=== PATIENT | male | born 1935 | race Caucasian/White ===

== ENCOUNTER 2018-07-26 07:44 | Inpatient (IN) | payer MEDICARE, BC ==
[2018-07-22 12:10] LABS: BASOPHILS % (AUTO) 0.4 % (0-1); EOSINOPHILS # (AUTO) 0.3 X10'3 (0-0.9); EOSINOPHILS % (AUTO) 5.1 % (0-6); LYMPHOCYTES # (AUTO) 1.7 X10'3 (1.1-4.8); LYMPHOCYTES % (AUTO) 32.6 % (21-51); MEAN CORPUSCULAR HEMOGLOBIN 30.4 PG (27.0-31.0); MEAN CORPUSCULAR HGB CONC 33.1 % (33.0-36.5); MEAN CORPUSCULAR VOLUME 91.8 FL (78-98); MEAN PLATELET VOLUME 9.4 FL (7.4-10.4); MONOCYTES # (AUTO) 0.7 X10'3 (0-0.9); MONOCYTES % (AUTO) 13.8 % (2-12); NEUTROPHILS # (AUTO) 2.5 X10'3 (1.8-7.7); NEUTROPHILS % (AUTO) 48.1 % (42-75); PRE OP HEMATOCRIT 41.5 % (42.0-52.0); PRE OP HEMOGLOBIN 13.8 g/dL (14.0-17.9); PRE OP PLATELET COUNT 203 X10'3 (140-440); RED BLOOD COUNT 4.52 X10'6 (4.70-6.10); RED CELL DISTRIBUTION WIDTH 16.8 % (11.5-14.5)
[2018-07-22 12:20] LABS: HEMOGLOBIN A1C 7.7 % (4.5-6.2)
[2018-07-22 12:21] LABS: PRE OP PROTIME 10.5 SECONDS (9.0-12.0)
[2018-07-22 12:33] LABS: ALBUMIN 3.6 G/DL (3.4-5.0); ALBUMIN/GLOBULIN RATIO 0.9 (1.1-1.5); ALKALINE PHOSPHATASE 78 IU/L (46-116); BLOOD UREA NITROGEN 22 MG/DL (7-18); BUN/CREATININE RATIO 17.5 (5.4-32.0); CALCIUM 9.5 MG/DL (8.5-10.1); CHLORIDE 106 MMOL/L (99-107); CREATININE 1.26 MG/DL (0.60-1.10); PRE OP ALT 23 U/L (30-65); PRE OP ANION GAP 9 (8-16); PRE OP AST 17 U/L (10-37); PRE OP BILIRUB, TOTAL 0.4 MG/DL (0.0-1.0); PRE OP POTASSIUM 4.3 MMOL/L (3.4-5.1); PRE OP SODIUM 143 MMOL/L (135-145); TOTAL CARBON DIOXIDE 28.2 MMOL/L (24-32); TOTAL PROTEIN 7.4 G/DL (6.4-8.2); eGFR 54 ML/MIN
[2018-07-22 12:43] LABS: PRE OP GLUCOSE 101 MG/DL (70-104)
[~2018-07-26] VITALS: Ht 170.2 cm; Wt 100.0 kg
[2018-07-26] VITALS (17 sets, daily range): BP systolic 106–139; BP diastolic 60–95
[~2018-07-26 07:44] MED LIST: AMYL1CAP56 PO; ATOR40TA PO; CHOL100044 PO; CYAN-19 PO; DULO-31 PO; FERR325T28 PO; FISH12002 PO; FLO0.4C PO; GLIM1TAB46 PO; LEVO125T8 PO; MULT-269 PO; NITR0.4T51 SL; PIOG30TA10 PO; PYRI50TA10 PO; QUIN10TA PO; TIMO5DRO4; TRANEXAMIC ACID 0 MG in NORMAL SALINE 100 ML-BEFORE SURGERY IV ONE; VANCOMYCIN INJ 1000 MG in NORMAL SALINE 250ml IV.SOLN IV ONE; cefazolin/dext.iso 2gm/100 ML IV ONE; famotidine 20mg tablet PO ONE; ringers solution, lacted 1,000 ML IV SCH
[2018-07-26] MEDS ORDERED: ROPIVAcaine 0.5% (5mg/ml) 30ml vial ONE ×2 (08:15→12:07)
[2018-07-26] MEDS ORDERED: tranexamic acid inj. 1,000 MG in normal saline 100ml IV soln 100 ML IV ONE ×2 (09:00→12:10)
[2018-07-26] MEDS ORDERED: vancomycin 1,000mg inj ONE (12:07)
[2018-07-26] MEDS ORDERED: sevoflurane 250ml liquid IH ONE (12:30)
[2018-07-26] MEDS ORDERED: ePHEDrine 50MG/ML INJ. ONE (12:30)
[2018-07-26] MEDS ORDERED: dexamethasone sod phosphate 10mg/ml inj ONE (12:30)
[2018-07-26] MEDS ORDERED: phenylephrine 10mg/ml inj. ONE ×2 (12:30→12:53)
[2018-07-26] MEDS ORDERED: midazolam 2 mg/2 ml injection ONE (12:37)
[2018-07-26] MEDS ORDERED: fentaNYL/PF 50MCG/1 ML 2ML syringe ONE ×2 (12:37→13:44)
[2018-07-26] MEDS ORDERED: propofol inj 20 ML IV ONE (13:10)
[2018-07-26] MEDS ORDERED: LIDOcaine 2% (20mg/ml) 5ml vial ONE (13:10)
[2018-07-26] MEDS ORDERED: ondansetron/PF 4mg/2ml inj ONE (13:10)
[2018-07-26] MEDS ORDERED: bisacodyl 10mg suppository rectal RC PRN (14:40)
[2018-07-26] MEDS ORDERED: nitroGLYCERIN 0.4mg SUBLingual tab SL PRN (14:40)
[2018-07-26] MEDS ORDERED: ondansetron/PF 4mg/2ml inj IV PRN ×2 (14:40→14:55)
[2018-07-26] MEDS ORDERED: diphenhydrAMINE 25mg capsule PO PRN ×2 (14:40)
[2018-07-26] MEDS ORDERED: magnesium hydroxide 30ml (MOM) UD suspension PO PRN (14:40)
[2018-07-26] MEDS ORDERED: HYDROmorphone 1 mg/ml syringe IV PRN ×2 (14:40)
[2018-07-26] MEDS ORDERED: oxyCODONE IR 5mg (immed. release) tablet PO PRN (14:40)
[2018-07-26] MEDS ORDERED: acetaminophen 325mg tablet PO PRN (14:40)
[2018-07-26] MEDS ORDERED: ringers solution, lacted 1,000 ML IV SCH (14:51)
[2018-07-26] MEDS ORDERED: hydrALAZINE 20mg/ml inj. IV PRN (14:55)
[2018-07-26] MEDS ORDERED: morphine 4 MG/ML inj SYRINge IV PRN ×2 (14:55)
[2018-07-26] MEDS ORDERED: fentaNYL/PF 50MCG/1 ML 2ML syringe IV PRN ×2 (14:55)
[2018-07-26] MEDS ORDERED: labetalol 20mg/4ml (5mg/ml) syringe IV PRN (14:55)
[2018-07-26] MEDS: ceFAZolin 1GM/D5W- ADD-VANTAGE 50 ML IV SCH ×2 (16:11→23:50)
[2018-07-26] MEDS: potassium cl 20mEq in 1/2 NS 1,000 ML IV SCH (16:12)
[2018-07-26] MEDS ORDERED: glimepiride 1 MG tablet PO SCH (20:00)
[2018-07-26] MEDS ORDERED: vancomycin/NS 1 GM ADD-VANTAGE 250 ML IV SCH (20:00)
[2018-07-26] MEDS: ferrous sulfate 325mg tablet PO SCH (20:27)
[2018-07-26] MEDS: LIPASE/PROTEASE/AMYLASE 4,200 unit CAPSULE.DR PO SCH ×2 (20:27→21:30)
[2018-07-26] MEDS: ketorolac tromethamine 15mg/ml inj. IV SCH (20:27)
[2018-07-26] MEDS: gabapentin 300mg capsule PO SCH (20:28)
[2018-07-26] MEDS: acetaminophen 325mg tablet PO SCH (20:28)
[2018-07-26] MEDS ORDERED: sennosides 8.6mg tablet PO SCH (21:00)
[2018-07-26] MEDS ORDERED: MESSAGE TO PHARMACY PO ONE (21:25)
[2018-07-26] MEDS ORDERED: dextrose ORAL solution 15 GM/59 ML bottle PO PRN ×2 (21:25)
[2018-07-26] MEDS ORDERED: glucagon, human recombinant 1mg kit SUBCUT PRN (21:25)
[2018-07-26] MEDS ORDERED: dextrose 50%-water 50ml dispensing syringe IV PRN ×2 (21:25)
[2018-07-26] MEDS: insulin Lispro (HumaLOG) vial - multi-dose SQ SCH (21:38)
[2018-07-27] MEDS: acetaminophen 325mg tablet PO SCH ×3 (01:46→14:25)
[2018-07-27] MEDS: potassium cl 20mEq in 1/2 NS 1,000 ML IV SCH ×3 (01:46→11:24)
[2018-07-27] MEDS: ketorolac tromethamine 15mg/ml inj. IV SCH ×3 (01:46→14:25)
[2018-07-27 02:00] VITALS: BP 136/78
[2018-07-27 06:00] VITALS: BP 120/71
[2018-07-27 07:49] LABS: BASOPHILS % (AUTO) 0 % (0-1); EOSINOPHILS % (AUTO) 0 % (0-6); HEMATOCRIT 35.8 % (42.0-52.0); LYMPHOCYTES # (AUTO) 1.2 X10'3 (1.1-4.8); LYMPHOCYTES % (AUTO) 9.3 % (21-51); MEAN CORPUSCULAR HEMOGLOBIN 30.8 PG (27.0-31.0); MEAN CORPUSCULAR HGB CONC 33.5 % (33.0-36.5); MEAN CORPUSCULAR VOLUME 91.8 FL (78-98); MEAN PLATELET VOLUME 9.9 FL (7.4-10.4); MONOCYTES % (AUTO) 7.2 % (2-12); NEUTROPHILS # (AUTO) 11.1 X10'3 (1.8-7.7); NEUTROPHILS % (AUTO) 83.5 % (42-75); PLATELET COUNT 190 X10'3 (140-440); RED CELL DISTRIBUTION WIDTH 15.9 % (11.5-14.5); WHITE BLOOD COUNT 13.3 X10'3 (4.5-11.0)
[2018-07-27] MEDS ORDERED: levoTHYROXINE 125mcg tablet PO SCH (08:00)
[2018-07-27] MEDS ORDERED: lisinopril 20mg tablet PO SCH (08:00)
[2018-07-27] MEDS ORDERED: atorvastatin 20mg tablet PO SCH (08:00)
[2018-07-27] MEDS ORDERED: tamsulosin 0.4mg capsule PO SCH (08:00)
[2018-07-27 08:17] LABS: ANION GAP 10 (8-16); CHLORIDE 104 MMOL/L (99-107); POTASSIUM 4.1 MMOL/L (3.5-5.1); SODIUM 139 MMOL/L (135-145); TOTAL CARBON DIOXIDE 24.7 MMOL/L (24-32)
[2018-07-27] MEDS ORDERED: aspirin 325mg tablet PO SCH (08:30)
[2018-07-27] MEDS: insulin Lispro (HumaLOG) vial - multi-dose SQ SCH ×2 (08:37→12:55)
[2018-07-27] MEDS: LIPASE/PROTEASE/AMYLASE 4,200 unit CAPSULE.DR PO SCH ×2 (08:38→12:55)
[2018-07-27] MEDS: ferrous sulfate 325mg tablet PO SCH ×2 (08:39→14:24)
[2018-07-27] MEDS: gabapentin 300mg capsule PO SCH ×2 (08:39→14:25)
[2018-07-27] MEDS: oxyCODONE IR 5mg (immed. release) tablet PO PRN ×2 (08:40→12:55)
[2018-07-27 10:00] VITALS: BP 116/66
[2018-07-27 10:47] LABS: ANISOCYTOSIS 1+; PLATELET ESTIMATE NORMAL; TOTAL CELLS COUNTED 100
[2018-07-27] MEDS ORDERED: celeCOXIB 100mg capsule PO SCH (20:00)
[2018-07-27] MEDS ORDERED: insulin glargine (Lantus) pen - multi-dose SQ SCH (21:00)
[2018-07-28] MEDS ORDERED: acetaminophen 325mg tablet PO PRN (14:40)
== END 2018-07-27 17:20 | disposition home or self-care (01) | DRG 483 ==
LOC: PAS IN 07:44 → EDSTATUS 10:00 → ORTHO 4S 15:50
PROVIDERS: ADMIT Orthopaedic Surgery; ATTEND Orthopaedic Surgery
PROC: 3E0T3BZ Introduction of Anesthetic Agent into Peripheral Nerves and Plexi, Percutaneous Approach (ICD-10-PCS; 2018-07-26)
PROC: 0LS30ZZ Reposition Right Upper Arm Tendon, Open Approach (ICD-10-PCS; 2018-07-26)
PROC: 0RRJ0JZ Replacement of Right Shoulder Joint with Synthetic Substitute, Open Approach (ICD-10-PCS; principal; 2018-07-26 12:35)
DX: M19.011 Primary osteoarthritis, right shoulder (principal); D62 Acute posthemorrhagic anemia; E03.9 Hypothyroidism, unspecified; E11.9 Type 2 diabetes mellitus without complications; E78.5 Hyperlipidemia, unspecified; M75.21 Bicipital tendinitis, right shoulder; I10 Essential (primary) hypertension; I25.10 Atherosclerotic heart disease of native coronary artery without angina pectoris; J45.909 Unspecified asthma, uncomplicated; F32.9 Major depressive disorder, single episode, unspecified; K21.9 Gastro-esophageal reflux disease without esophagitis; F41.9 Anxiety disorder, unspecified; N40.0 Benign prostatic hyperplasia without lower urinary tract symptoms; Z88.6 Allergy status to analgesic agent; Z87.891 Personal history of nicotine dependence; Z79.899 Other long term (current) drug therapy; Z98.49 Cataract extraction status, unspecified eye; Z85.79 Personal history of other malignant neoplasms of lymphoid, hematopoietic and related tissues
CPT/HCPCS: 36415; 71046; 80051; 80053; 82948; 83036; 84443; 85025; 85610; 85730; 87070; 97110; 97116; 97161; A4565; A7000; C1713; C1776; G0378; J0690; J1100; J1815; J1885; J2001; J2250; J2370; J2405; J2704; J2795; J3010; J3370; J7030; J7040; J7120

== ENCOUNTER 2018-09-02 07:07 | Inpatient (IN) | payer MEDICARE, BC ==
[~2018-09-02] VITALS: Ht 172.7 cm; Wt 100.0 kg
[2018-09-02] VITALS (11 sets, daily range): BP systolic 114–132; BP diastolic 54–66
[~2018-09-02 07:07] MED LIST changes: -TRANEXAMIC ACID 0 MG in NORMAL SALINE 100 ML-BEFORE SURGERY IV ONE; -VANCOMYCIN INJ 1000 MG in NORMAL SALINE 250ml IV.SOLN IV ONE; -cefazolin/dext.iso 2gm/100 ML IV ONE; -famotidine 20mg tablet PO ONE; -ringers solution, lacted 1,000 ML IV SCH
[2018-09-02] MEDS ORDERED: ASPI-1265 PO (07:35)
[2018-09-02] MEDS ORDERED: ALPR-623 PO (07:50)
[2018-09-02 08:18] LABS: ALANINE AMINOTRANSFERASE 22 U/L (12-78); ALBUMIN 2.9 G/DL (3.4-5.0); ALBUMIN/GLOBULIN RATIO 0.9 (1.1-1.5); ALKALINE PHOSPHATASE 76 IU/L (46-116); ANION GAP 10 (8-16); ASPARTATE AMINO TRANSFERASE 23 U/L (10-37); BILIRUBIN,TOTAL 0.4 MG/DL (0.1-1.0); BLOOD UREA NITROGEN 16 MG/DL (7-18); BUN/CREATININE RATIO 13.3 (5.4-32.0); CALCIUM 8.5 MG/DL (8.5-10.1); CHLORIDE 106 MMOL/L (99-107); GLUCOSE 221 MG/DL (70-104); SODIUM 139 MMOL/L (135-145); TOTAL CARBON DIOXIDE 22.9 MMOL/L (24-32); TOTAL PROTEIN 6.2 G/DL (6.4-8.2); eGFR 58 ML/MIN
[2018-09-02 08:28] LABS: POTASSIUM 4.5 MMOL/L (3.5-5.1)
[2018-09-02 09:13] LABS: BASOPHILS % (AUTO) 0.3 % (0-1); EOSINOPHILS # (AUTO) 0.2 X10'3 (0-0.9); EOSINOPHILS % (AUTO) 4.5 % (0-6); LYMPHOCYTES # (AUTO) 1.1 X10'3 (1.1-4.8); LYMPHOCYTES % (AUTO) 21.1 % (21-51); MEAN CORPUSCULAR HEMOGLOBIN 31.2 PG (27.0-31.0); MEAN CORPUSCULAR HGB CONC 32.2 % (33.0-36.5); MEAN CORPUSCULAR VOLUME 96.8 FL (78-98); MEAN PLATELET VOLUME 7.7 FL (7.4-10.4); MONOCYTES # (AUTO) 0.7 X10'3 (0-0.9); MONOCYTES % (AUTO) 12.8 % (2-12); NEUTROPHILS # (AUTO) 3.2 X10'3 (1.8-7.7); NEUTROPHILS % (AUTO) 61.3 % (42-75); PLATELET COUNT 248 X10'3 (140-440); RED CELL DISTRIBUTION WIDTH 22.1 % (11.5-14.5); WHITE BLOOD COUNT 5.3 X10'3 (4.5-11.0)
[2018-09-02 09:20] LABS: HEMATOCRIT 20.4 % (42.0-52.0); HEMOGLOBIN 6.6 g/dl (14.0-17.9)
[2018-09-02 09:27] LABS: CHOL/HDL RATIO 2.5 (0.00-4.99); CHOLESTEROL 102 MG/DL (0-200); HDL CHOLESTEROL 41 MG/DL (35-60); LDL CHOLESTEROL 42 MG/DL (50-100); TRIGLYCERIDES 184 MG/DL (20-135)
[2018-09-02 09:34] LABS: ANISOCYTOSIS 3+; LARGE PLATELETS FEW; PLATELET ESTIMATE NORMAL
[2018-09-02 09:35] LABS: POLYCHROMASIA FEW
[2018-09-02 09:37] LABS: HEMOGLOBIN A1C 5.5 % (4.5-6.2)
[2018-09-02] MEDS ORDERED: nitroGLYCERIN 0.4mg SUBLingual tab SL PRN (10:15)
[2018-09-02] MEDS ORDERED: magnesium 1gm/100ml D5W IVPB 100 ML IV PRN (10:20)
[2018-09-02] MEDS ORDERED: MESSAGE TO PHARMACY PO ONE (10:20)
[2018-09-02] MEDS ORDERED: potassium Cl 40MEQ/NS 500ml 500 ML IV PRN ×2 (10:20)
[2018-09-02] MEDS ORDERED: ondansetron/PF 4mg/2ml inj IV PRN (10:20)
[2018-09-02] MEDS ORDERED: dextrose 50%-water 50ml dispensing syringe IV PRN ×2 (10:20)
[2018-09-02] MEDS ORDERED: ipratropium/albuterol 3ml nebule NEB PRN (10:20)
[2018-09-02] MEDS ORDERED: insulin Lispro (HumaLOG) vial - multi-dose SQ SCH (10:20)
[2018-09-02] MEDS ORDERED: pantoprazole 40 MG vial IV ONE (10:20)
[2018-09-02] MEDS ORDERED: bisacodyl 10mg suppository rectal RC PRN (10:20)
[2018-09-02] MEDS ORDERED: potassium Cl 20 mEq SR tablet PO PRN ×2 (10:20)
[2018-09-02] MEDS ORDERED: glucagon, human recombinant 1mg kit SUBCUT PRN (10:20)
[2018-09-02] MEDS ORDERED: dextrose ORAL solution 15 GM/59 ML bottle PO PRN ×2 (10:20)
[2018-09-02] MEDS ORDERED: acetaminophen 650mg rectal suppository RC PRN (10:20)
[2018-09-02] MEDS ORDERED: HYDROmorphone 1 mg/ml syringe IV PRN (10:20)
[2018-09-02] MEDS ORDERED: magnesium 4gm in 100ml NS 100 ML IV PRN (10:20)
[2018-09-02] MEDS: pantoprazole 40MG/NS 100ML BAG 100 ML IV SCH ×3 (11:21→20:31)
--- NOTE | 2018-09-02 11:32 | NUR ---
Patient in room ED 8. I have received report from ILEANA Horta and had the opportunity to ask questions and assume patient care.
[2018-09-02] MEDS ORDERED: pneumococcal 23-VAL P-sac vacc 25 mcg/0.5ml vial IMVAC ONE (12:00)
[2018-09-02] MEDS: LIPASE/PROTEASE/AMYLASE 4,200 unit CAPSULE.DR PO SCH ×3 (12:30→19:37)
[2018-09-02] MEDS ORDERED: lipase/protease/amylase 20,000 unit capsule.DR PO SCH (12:30)
[2018-09-02 12:33] LABS: OCCULT BLOOD STOOL POSITIVE (Neg)
[2018-09-02 14:46] LABS: MEAN CORPUSCULAR HEMOGLOBIN 30.4 PG (27.0-31.0); MEAN CORPUSCULAR HGB CONC 31.3 % (33.0-36.5); MEAN CORPUSCULAR VOLUME 97.1 FL (78-98); MEAN PLATELET VOLUME 7.8 FL (7.4-10.4); PLATELET COUNT 244 X10'3 (140-440); WHITE BLOOD COUNT 5.1 X10'3 (4.5-11.0)
[2018-09-02 14:48] LABS: HEMOGLOBIN 6.7 g/dl (14.0-17.9)
[2018-09-02 14:49] LABS: HEMATOCRIT 21.4 % (42.0-52.0)
[2018-09-02] MEDS: ferrous sulfate 325mg tablet PO SCH ×2 (16:55→20:31)
--- NOTE | 2018-09-02 17:17 | NUR ---
Two RN Skin Assessment has been completed at 1715 with ILEANA Ferrara,all skin assessed,with the following findings. No impaired skin integrity noted at this time. Surgical incision scar to right anterior shoulder D/T shoulder surgery 1 month ago.
--- NOTE | 2018-09-02 18:30 | NUR ---
Problems reprioritized. Patient report given, questions answered & plan of care reviewed with ILEANA Hector.
--- NOTE | 2018-09-02 19:16 | NUR ---
Patient in room NOHEMI 350. I have received report from ILEANA Wright and had the opportunity to ask questions and assume patient care. Addendum: 09/02/18 at 1916 by Tawny Stanley RN Amended: Links added.
[2018-09-02] MEDS: atorvastatin 20mg tablet PO SCH (20:31)
[2018-09-02] MEDS: insulin glargine (Lantus) pen - multi-dose SQ SCH (21:00)
[2018-09-02] MEDS: ALPRAZolam 0.25mg tablet PO PRN (23:31)
[2018-09-02 23:56] LABS: HEMATOCRIT 24.3 % (42.0-52.0); HEMOGLOBIN 7.9 g/dl (14.0-17.9); MEAN CORPUSCULAR HEMOGLOBIN 30.1 PG (27.0-31.0); MEAN CORPUSCULAR HGB CONC 32.3 % (33.0-36.5); MEAN CORPUSCULAR VOLUME 93.2 FL (78-98); MEAN PLATELET VOLUME 8.4 FL (7.4-10.4); PLATELET COUNT 221 X10'3 (140-440); RED BLOOD COUNT 2.61 X10'6 (4.70-6.10); RED CELL DISTRIBUTION WIDTH 21.8 % (11.5-14.5); WHITE BLOOD COUNT 5.6 X10'3 (4.5-11.0)
[2018-09-03] VITALS (11 sets, daily range): BP systolic 117–156; BP diastolic 57–82
[2018-09-03] MEDS: pantoprazole 40MG/NS 100ML BAG 100 ML IV SCH ×3 (02:54→11:00)
[2018-09-03 05:56] LABS: BASOPHILS % (AUTO) 0.3 % (0-1); EOSINOPHILS # (AUTO) 0.2 X10'3 (0-0.9); EOSINOPHILS % (AUTO) 3.8 % (0-6); HEMATOCRIT 25.7 % (42.0-52.0); HEMOGLOBIN 8.3 g/dl (14.0-17.9); LYMPHOCYTES # (AUTO) 1.1 X10'3 (1.1-4.8); MEAN CORPUSCULAR HEMOGLOBIN 30.1 PG (27.0-31.0); MEAN CORPUSCULAR HGB CONC 32.4 % (33.0-36.5); MEAN CORPUSCULAR VOLUME 92.9 FL (78-98); MEAN PLATELET VOLUME 7.9 FL (7.4-10.4); MONOCYTES # (AUTO) 0.6 X10'3 (0-0.9); MONOCYTES % (AUTO) 11.4 % (2-12); NEUTROPHILS # (AUTO) 3.7 X10'3 (1.8-7.7); NEUTROPHILS % (AUTO) 64.5 % (42-75); PLATELET COUNT 225 X10'3 (140-440); RED BLOOD COUNT 2.77 X10'6 (4.70-6.10); RED CELL DISTRIBUTION WIDTH 21.5 % (11.5-14.5); WHITE BLOOD COUNT 5.7 X10'3 (4.5-11.0)
[2018-09-03 06:10] LABS: PLATELET ESTIMATE NORMAL
[2018-09-03 06:11] LABS: ANISOCYTOSIS 3+; POLYCHROMASIA FEW
[2018-09-03 06:14] LABS: ALANINE AMINOTRANSFERASE 19 U/L (12-78); ALBUMIN 2.9 G/DL (3.4-5.0); ALBUMIN/GLOBULIN RATIO 0.9 (1.1-1.5); ALKALINE PHOSPHATASE 77 IU/L (46-116); ANION GAP 7 (8-16); ASPARTATE AMINO TRANSFERASE 17 U/L (10-37); BILIRUBIN,TOTAL 0.9 MG/DL (0.1-1.0); BLOOD UREA NITROGEN 18 MG/DL (7-18); BUN/CREATININE RATIO 13.6 (5.4-32.0); CALCIUM 8.4 MG/DL (8.5-10.1); CHLORIDE 107 MMOL/L (99-107); CHOL/HDL RATIO 2.7 (0.00-4.99); CHOLESTEROL 104 MG/DL (0-200); CREATININE 1.32 MG/DL (0.60-1.10); GLUCOSE 121 MG/DL (70-104); HDL CHOLESTEROL 39 MG/DL (35-60); LDL CHOLESTEROL 46 MG/DL (50-100); SODIUM 140 MMOL/L (135-145); TOTAL CARBON DIOXIDE 25.6 MMOL/L (24-32); TOTAL PROTEIN 6.3 G/DL (6.4-8.2); TRIGLYCERIDES 146 MG/DL (20-135); eGFR 52 ML/MIN
--- NOTE | 2018-09-03 06:15 | NUR ---
Problems reprioritized. Patient report given, questions answered & plan of care reviewed with Dalia TEJEDA.
--- NOTE | 2018-09-03 06:17 | NUR ---
Problems reprioritized. Patient report given, questions answered & plan of care reviewed with ILEANA Richard. Addendum: 09/03/18 at 0618 by Tawny Stanley RN Amended: Links added.
--- NOTE | 2018-09-03 06:25 | NUR ---
call from tele to report hr 115. pt. standing at bedside urinating
--- NOTE | 2018-09-03 06:30 | NUR ---
Patient in room NOHE[facility] 350. I have received report from Tawny TEJEDA and had the opportunity to ask questions and assume patient care.
[2018-09-03] MEDS: K and/or MAG REPLACEMENT MC SCH (07:06)
[2018-09-03] MEDS: LIPASE/PROTEASE/AMYLASE 4,200 unit CAPSULE.DR PO SCH ×4 (07:06→21:07)
[2018-09-03] MEDS: atorvastatin 20mg tablet PO SCH ×2 (07:07→19:35)
[2018-09-03] MEDS: ferrous sulfate 325mg tablet PO SCH ×3 (07:07→21:08)
[2018-09-03] MEDS: tamsulosin 0.4mg capsule PO SCH (07:07)
[2018-09-03] MEDS: multivitamins, therapeutics tablet PO SCH (07:07)
[2018-09-03] MEDS: duloxetine 30mg CAPSULE.DR PO SCH (07:07)
[2018-09-03] MEDS: levoTHYROXINE 125mcg tablet PO SCH (07:07)
[2018-09-03] MEDS: cyanocobalamin 500mcg tablet PO SCH (07:08)
[2018-09-03] MEDS: vitamin D (cholecalciferol) 1,000 unit tablet PO SCH (07:08)
[2018-09-03] MEDS: pyridoxine 50mg tablet PO SCH (07:08)
[2018-09-03] MEDS ORDERED: pneumococcal 23-VAL P-sac vacc 25 mcg/0.5ml vial IMVAC ONE (10:00)
[2018-09-03] MEDS ORDERED: LORazepam 2 mg/ml vial IV ONE (10:35)
[2018-09-03] MEDS ORDERED: fentaNYL/PF 50MCG/1 ML 2ML syringe ONE (11:39)
[2018-09-03] MEDS ORDERED: MIDAZolam 5mg/5ml vial ONE (11:39)
[2018-09-03] MEDS ORDERED: LIDOcaine Viscous 15ml cup ONE (11:39)
--- NOTE | 2018-09-03 11:59 | NUR ---
Patient taken down to GI lab for EGD via w/c.
--- NOTE | 2018-09-03 15:18 | NUR ---
Patient back in room 350A from GI lab.
--- NOTE | 2018-09-03 15:33 | NUR ---
MD informed of EGD results. MD ordered clear liquids and protonix 40mg BID IV.
--- NOTE | 2018-09-03 18:30 | NUR ---
Patient in room [facility] 350. I have received report from ILEANA Richard and had the opportunity to ask questions and assume patient care.
--- NOTE | 2018-09-03 18:30 | NUR ---
Student documentation: I have reviewed and agree with all interventions, assessments performed and documented by Ezra Student Nurse. Student Medication Administration: For this medication-pass time frame, all medication were reviewed, dispensed, administered and documented per hospital policy by Ezra Student Nurse.
[2018-09-03] MEDS: pantoprazole 40 MG vial IV SCH (19:35)
[2018-09-03] MEDS: insulin glargine (Lantus) pen - multi-dose SQ SCH (21:00)
[2018-09-04] VITALS: BP 132/63
[2018-09-04] MEDS: ALPRAZolam 0.25mg tablet PO PRN (00:02)
[2018-09-04 05:29] LABS: BASOPHILS % (AUTO) 0.2 % (0-1); EOSINOPHILS # (AUTO) 0.2 X10'3 (0-0.9); EOSINOPHILS % (AUTO) 4.4 % (0-6); HEMATOCRIT 25.3 % (42.0-52.0); HEMOGLOBIN 8.1 g/dl (14.0-17.9); LYMPHOCYTES # (AUTO) 0.9 X10'3 (1.1-4.8); LYMPHOCYTES % (AUTO) 18.4 % (21-51); MEAN CORPUSCULAR HEMOGLOBIN 29.4 PG (27.0-31.0); MEAN CORPUSCULAR HGB CONC 31.9 % (33.0-36.5); MEAN CORPUSCULAR VOLUME 92.1 FL (78-98); MEAN PLATELET VOLUME 7.6 FL (7.4-10.4); MONOCYTES # (AUTO) 0.6 X10'3 (0-0.9); MONOCYTES % (AUTO) 11.5 % (2-12); NEUTROPHILS # (AUTO) 3.2 X10'3 (1.8-7.7); NEUTROPHILS % (AUTO) 65.5 % (42-75); PLATELET COUNT 230 X10'3 (140-440); RED BLOOD COUNT 2.75 X10'6 (4.70-6.10); RED CELL DISTRIBUTION WIDTH 21.2 % (11.5-14.5)
[2018-09-04 05:50] LABS: ALANINE AMINOTRANSFERASE 21 U/L (12-78); ALKALINE PHOSPHATASE 75 IU/L (46-116); ANION GAP 8 (8-16); ASPARTATE AMINO TRANSFERASE 16 U/L (10-37); BILIRUBIN,TOTAL 0.6 MG/DL (0.1-1.0); BLOOD UREA NITROGEN 16 MG/DL (7-18); BUN/CREATININE RATIO 15.4 (5.4-32.0); CALCIUM 8.5 MG/DL (8.5-10.1); CHLORIDE 107 MMOL/L (99-107); CREATININE 1.04 MG/DL (0.60-1.10); GLUCOSE 136 MG/DL (70-104); POTASSIUM 3.9 MMOL/L (3.5-5.1); SODIUM 141 MMOL/L (135-145); TOTAL CARBON DIOXIDE 26.2 MMOL/L (24-32); TOTAL PROTEIN 6.1 G/DL (6.4-8.2); eGFR 68 ML/MIN
--- NOTE | 2018-09-04 06:18 | NUR ---
Problems reprioritized. Patient report given, questions answered & plan of care reviewed with ILEANA Richard.
--- NOTE | 2018-09-04 06:21 | NUR ---
Patient in room NOHEMI 350. I have received report from ILEANA CORRIGAN and had the opportunity to ask questions and assume patient care.
--- NOTE | 2018-09-04 06:44 | NUR ---
Patient in room [facility] 350. I have received report from Dalia TEJEDA and had the opportunity to ask questions and assume patient care.
[2018-09-04 08:00] VITALS: BP 136/68
[2018-09-04] MEDS: K and/or MAG REPLACEMENT MC SCH (08:00)
[2018-09-04] MEDS: pantoprazole 40 MG vial IV SCH (08:12)
[2018-09-04] MEDS: levoTHYROXINE 125mcg tablet PO SCH (08:33)
[2018-09-04] MEDS: duloxetine 30mg CAPSULE.DR PO SCH (08:33)
[2018-09-04] MEDS: pyridoxine 50mg tablet PO SCH (08:33)
[2018-09-04] MEDS: cyanocobalamin 500mcg tablet PO SCH (08:34)
[2018-09-04] MEDS: tamsulosin 0.4mg capsule PO SCH (08:34)
[2018-09-04] MEDS: multivitamins, therapeutics tablet PO SCH (08:34)
[2018-09-04] MEDS: atorvastatin 20mg tablet PO SCH (08:34)
[2018-09-04] MEDS: vitamin D (cholecalciferol) 1,000 unit tablet PO SCH (08:34)
[2018-09-04] MEDS: ferrous sulfate 325mg tablet PO SCH ×2 (08:34→12:28)
[2018-09-04] MEDS: LIPASE/PROTEASE/AMYLASE 4,200 unit CAPSULE.DR PO SCH ×2 (08:34→12:28)
[2018-09-04 11:39] VITALS: BP 118/68
--- NOTE | 2018-09-04 12:24 | NUR ---
Reported off to student nurse Keily and primary nurse Hilary. patient resting in bed. BLL and call light within reach.
--- NOTE | 2018-09-04 12:57 | NUR ---
Received report from ILEANA Richard, was able to ask questions, assumed care of patient. HM
[2018-09-04] MEDS ORDERED: ESOM40CA54 PO (14:33)
--- NOTE | 2018-09-04 15:40 | NUR ---
Reported off to ILEANA Richard, patient discharged, took patient to lobby by w/cElias CAMPOS
--- NOTE | 2018-09-04 15:45 | NUR ---
Patient discharge paperwork gone over with pt and signed. Patient understands to followup with PCP and Dr. Rodarte. Rx delivered to bedside. IV taken out, tele taken off. All belongings gathered. to take pt home. W/c to front lobby.
== END 2018-09-04 15:50 | disposition home or self-care (01) | DRG 391 ==
LOC: ER 07:07 → ED HOLD 10:27 → SUR 3N 12:02
PROVIDERS: ADMIT Family Medicine; ATTEND Family Medicine
PROC: 30233N1 Transfusion of Nonautologous Red Blood Cells into Peripheral Vein, Percutaneous Approach (ICD-10-PCS; principal; 2018-09-02)
PROC: 0DB68ZX Excision of Stomach, Via Natural or Artificial Opening Endoscopic, Diagnostic (ICD-10-PCS; 2018-09-03)
DX: K20.9 Esophagitis, unspecified (principal); K26.0 Acute duodenal ulcer with hemorrhage; K26.4 Chronic or unspecified duodenal ulcer with hemorrhage; K29.71 Gastritis, unspecified, with bleeding; C90.00 Multiple myeloma not having achieved remission; E44.1 Mild protein-calorie malnutrition; I24.9 Acute ischemic heart disease, unspecified; D50.0 Iron deficiency anemia secondary to blood loss (chronic); E11.65 Type 2 diabetes mellitus with hyperglycemia; E78.00 Pure hypercholesterolemia, unspecified; E78.5 Hyperlipidemia, unspecified; F41.9 Anxiety disorder, unspecified; I10 Essential (primary) hypertension; I25.10 Atherosclerotic heart disease of native coronary artery without angina pectoris; K22.8 Other specified diseases of esophagus; J45.909 Unspecified asthma, uncomplicated; N40.0 Benign prostatic hyperplasia without lower urinary tract symptoms; Z96.653 Presence of artificial knee joint, bilateral; Z96.611 Presence of right artificial shoulder joint; Z96.612 Presence of left artificial shoulder joint; Z95.5 Presence of coronary angioplasty implant and graft; I25.2 Old myocardial infarction; Z88.6 Allergy status to analgesic agent; Z88.8 Allergy status to other drugs, medicaments and biological substances; Z79.84 Long term (current) use of oral hypoglycemic drugs; Z79.890 Hormone replacement therapy; Z79.82 Long term (current) use of aspirin; Z87.891 Personal history of nicotine dependence; Z80.0 Family history of malignant neoplasm of digestive organs; Z68.33 Body mass index [BMI] 33.0-33.9, adult
CPT/HCPCS: 36415; 43239; 71045; 80053; 80061; 82272; 82948; 83036; 83735; 83880; 84443; 84484; 85025; 85027; 86885; 86900; 86901; 86920; 87070; 88305; 88342; 90732; 93005; 94640; 94760; 99152; 99285; A4620; C9113; G0378; J1815; J2060; J2250; J3010; J7030; P9016

== ENCOUNTER 2018-11-28 21:22 | Inpatient (IN) | payer MEDICARE, BC ==
[~2018-11-28] VITALS: Ht 172.7 cm; Wt 100.0 kg
[~2018-11-28 21:22] MED LIST changes: +ALPR-623 PO; +ESOM40CA54 PO; -TIMO5DRO4; +TIMO5DRO4 EACHEYE; +temazepam 15mg capsule PO PRN
--- NOTE | 2018-11-28 22:21 | NUR ---
DR KITCHEN AT BEDSIDE TO TAKE FLUID OFF OF LEFT KNEE, SAMPLE SENT TO LAB
[2018-11-28] MEDS ORDERED: HYDROcodone/acetaminophen 10/325mg tab PO ONE (22:25)
--- NOTE | 2018-11-28 22:42 | NUR ---
PT HAS NO RIDE HOME, DOESN'T DRIVE AT NIGHT SHE ONLY HAS ONE EYE, NO FRIENDS AVAILABLE TO TAKE PT HOME IF HE IS DISCHARGED, PT CAME BY AMBULANCE "BECAUSE I COULDN'T WALK"
[2018-11-28 23:02] LABS: APPEARANCE,SYNOVIAL FLUID CLOUDY; COLOR,SYNOVIAL FLUID YELLOW
[2018-11-28 23:05] LABS: GLUCOSE,SYNOVIAL FLUID 89 MG/DL; TOTAL PROTEIN,SYNOVIAL FLUID 3.7 GM/DL
[2018-11-28 23:26] LABS: SYN WBC 74000 /CU MM (0-200)
[2018-11-28 23:27] LABS: SYN RBC 14500 /CU MM (0)
[2018-11-28] MEDS ORDERED: CefTRIAXone 2gm/D5W 50ml 50 ML IV ONE (23:40)
[2018-11-28] MEDS ORDERED: vancomycin/NS 1 GM ADD-VANTAGE 250 ML IV ONE (23:40)
--- NOTE | 2018-11-28 23:45 | NUR ---
DR DOCKERY AT BEDSIDE TO EVAL PT
[2018-11-28 23:46] LABS: SYNOVIAL FLUID CRYSTALS QT NO CRYSTALS SEEN
[2018-11-28] MEDS ORDERED: normal saline 1000ML IV soln IVB ONE (23:50)
[2018-11-28] MEDS: normal saline 1000ml 1,000 ML IV SCH (23:58)
[2018-11-29] MEDS ORDERED: dextrose 50%-water 50ml dispensing syringe IV PRN ×2
[2018-11-29] MEDS ORDERED: acetaminophen 325mg tablet PO PRN ×2
[2018-11-29] MEDS ORDERED: magnesium hydroxide 30ml (MOM) UD suspension PO PRN
[2018-11-29] MEDS ORDERED: MESSAGE TO PHARMACY PO ONE
[2018-11-29] MEDS ORDERED: insulin Lispro (HumaLOG) vial - multi-dose SQ SCH
[2018-11-29] MEDS ORDERED: ondansetron/PF 4mg/2ml inj IV PRN
[2018-11-29] MEDS ORDERED: morphine 4 MG/ML inj SYRINge IV PRN
[2018-11-29] MEDS ORDERED: dextrose ORAL solution 15 GM/59 ML bottle PO PRN ×2
[2018-11-29] MEDS ORDERED: glucagon, human recombinant 1mg kit SUBCUT PRN
[2018-11-29] MEDS ORDERED: mag hydrox/Alum hydrox/simeth 30ml oral suspension PO PRN
[2018-11-29] MEDS ORDERED: HYDROcodone/acetaminophen 5mg/325mg tablet PO PRN
--- NOTE | 2018-11-29 00:04 | NUR ---
PT MOVED TO ROOM 8, PLAN TO ADMIT TO HOSPITAL, 2ND SET OF BLOOD CX DRAWN WITH IV START, PT SAID HE HAS PORT ON RT SIDE OF CHEST, RECEIVED IRON INFUSION, H/O TERMINAL BONE CANCER
[2018-11-29 00:12] LABS: BASOPHILS % (AUTO) 0.1 % (0-1); EOSINOPHILS # (AUTO) 0.2 X10'3 (0-0.9); EOSINOPHILS % (AUTO) 1.9 % (0-6); HEMOGLOBIN 11.2 g/dl (14.0-17.9); LYMPHOCYTES % (AUTO) 8.9 % (21-51); MEAN CORPUSCULAR HEMOGLOBIN 29.8 PG (27.0-31.0); MEAN CORPUSCULAR HGB CONC 32.8 g/dL (33.0-36.5); MEAN CORPUSCULAR VOLUME 90.8 FL (78-98); MEAN PLATELET VOLUME 8.4 FL (7.4-10.4); MONOCYTES # (AUTO) 1.3 X10'3 (0-0.9); MONOCYTES % (AUTO) 11.7 % (2-12); NEUTROPHILS # (AUTO) 8.4 X10'3 (1.8-7.7); NEUTROPHILS % (AUTO) 77.4 % (42-75); PLATELET COUNT 263 X10'3 (140-440); RED BLOOD COUNT 3.75 X10'6 (4.70-6.10); WHITE BLOOD COUNT 10.9 X10'3 (4.5-11.0)
[2018-11-29 00:24] LABS: INR 1.1 INR; PARTIAL THROMBOPLASTIN TIME 39 SECONDS (22-32)
[2018-11-29 00:25] LABS: ALANINE AMINOTRANSFERASE 21 U/L (12-78); ALBUMIN 3.4 G/DL (3.4-5.0); ALBUMIN/GLOBULIN RATIO 0.9 (1.1-1.5); ALKALINE PHOSPHATASE 84 IU/L (46-116); ANION GAP 9 (8-16); ASPARTATE AMINO TRANSFERASE 15 U/L (10-37); BILIRUBIN,TOTAL 0.5 MG/DL (0.1-1.0); BLOOD UREA NITROGEN 15 MG/DL (7-18); BUN/CREATININE RATIO 12.4 (5.4-32.0); CHLORIDE 98 MMOL/L (99-107); CREATININE 1.21 MG/DL (0.60-1.10); GLUCOSE 178 MG/DL (70-104); MAGNESIUM 1.8 MG/DL (1.5-2.4); POTASSIUM 4.2 MMOL/L (3.5-5.1); SODIUM 133 MMOL/L (135-145); TOTAL CARBON DIOXIDE 26.1 MMOL/L (24-32); TOTAL PROTEIN 7.2 G/DL (6.4-8.2); eGFR 57 ML/MIN
[2018-11-29] MEDS ORDERED: LEVO137T2 PO (00:46)
[2018-11-29 00:47] LABS: HEMOGLOBIN A1C 6.3 % (4.5-6.2)
[2018-11-29] MEDS ORDERED: HYDR-3972 PO (00:47)
[2018-11-29 01:44] LABS: CLARITY,URINE CLOUDY (Clear); COLOR,URINE YELLOW (Yellow); GLUCOSE, URINE NEGATIVE (Neg); KETONES,URINE NEGATIVE (Neg); LEUKOCYTE ESTERASE ,URINE LARGE (Neg); NITRITES, URINE NEGATIVE (Neg); OCCULT BLOOD,URINE LARGE (Neg); PROTEIN,URINE 30 mg/dl (Neg); UROBILINOGEN,URINE 0.2 E.U/dL (0.2-1.0)
[2018-11-29 01:50] LABS: UA COLLECTION TYPE URINAL
[2018-11-29 01:51] LABS: SQUAMOUS EPITHELIAL CELL,UR FEW /LPF (FEW); WBC,URINE TNTC /HPF (0-4)
[2018-11-29 01:52] LABS: BACTERIA,URINE 1+ /HPF (Neg)
[2018-11-29] MEDS ORDERED: NORMAL SALINE IV SCH (06:00)
[2018-11-29] MEDS ORDERED: VANCOMYCIN IV SCH (06:00)
[2018-11-29] MEDS: vancomycin inj 1,250 MG in normal saline 250ml IV soln 250 ML IV SCH ×2 (06:41→17:02)
--- NOTE | 2018-11-29 07:34 | NUR ---
REPORT ATTEMPTED, ILEANA JUARES TO CALL BACK.
[2018-11-29 07:55] LABS: BASOPHILS % (AUTO) 0.3 % (0-1); EOSINOPHILS # (AUTO) 0.1 X10'3 (0-0.9); EOSINOPHILS % (AUTO) 1.6 % (0-6); HEMATOCRIT 32.2 % (42.0-52.0); HEMOGLOBIN 10.6 g/dl (14.0-17.9); LYMPHOCYTES % (AUTO) 12.7 % (21-51); MEAN CORPUSCULAR HGB CONC 32.9 g/dL (33.0-36.5); MEAN CORPUSCULAR VOLUME 91.2 FL (78-98); MEAN PLATELET VOLUME 8.2 FL (7.4-10.4); MONOCYTES # (AUTO) 1.2 X10'3 (0-0.9); MONOCYTES % (AUTO) 14.1 % (2-12); NEUTROPHILS # (AUTO) 5.8 X10'3 (1.8-7.7); NEUTROPHILS % (AUTO) 71.3 % (42-75); PLATELET COUNT 238 X10'3 (140-440); RED BLOOD COUNT 3.53 X10'6 (4.70-6.10); RED CELL DISTRIBUTION WIDTH 18.4 % (11.5-14.5); WHITE BLOOD COUNT 8.2 X10'3 (4.5-11.0)
[2018-11-29] MEDS ORDERED: vancomycin/NS 1 GM ADD-VANTAGE 250 ML IV SCH (08:00)
[2018-11-29] MEDS: enoxaparin 40mg/0.4ml syringe SUBCUT SCH (08:00)
[2018-11-29 08:13] LABS: ANION GAP 8 (8-16); BLOOD UREA NITROGEN 12 MG/DL (7-18); BUN/CREATININE RATIO 11.3 (5.4-32.0); CALCIUM 8.6 MG/DL (8.5-10.1); CHLORIDE 103 MMOL/L (99-107); CREATININE 1.06 MG/DL (0.60-1.10); POTASSIUM 3.9 MMOL/L (3.5-5.1); SODIUM 138 MMOL/L (135-145); TOTAL CARBON DIOXIDE 27.1 MMOL/L (24-32); eGFR 66 ML/MIN
[2018-11-29 08:16] LABS: GLUCOSE 109 MG/DL (70-104)
[2018-11-29 10:00] VITALS: BP 118/59
--- NOTE | 2018-11-29 10:19 | NUR ---
Temp 100.1, Erwin FRANZ and Dr Waterman made aware.
[2018-11-29] MEDS: normal saline 1000ml 1,000 ML IV SCH ×2 (11:34→19:58)
[2018-11-29] MEDS ORDERED: nitroGLYCERIN 0.4mg SUBLingual tab SL PRN (14:55)
[2018-11-29] MEDS ORDERED: ALPRAZolam 0.25mg tablet PO PRN (14:55)
[2018-11-29 15:41] LABS: LYMPHOCYTES,BODY FLUID 4 %; MONOCYTES,BODY FLUID 8 %; NEUTROPHILS,BODY FLUID 88 %
[2018-11-29 15:42] LABS: BFAPPEAR CLOUDY
[2018-11-29 15:43] LABS: BF RBC COUNT 1275 /CU MM; BF WBC COUNT 6450 /CU MM (0-1000); BFCOLOR AMBER; BFVOLUME 2 ML
[2018-11-29 16:33] LABS: TOTAL CELLS COUNTED 100
[2018-11-29 16:34] LABS: ANISOCYTOSIS 2+; PLATELET ESTIMATE NORMAL; POIKILOCYTOSIS 1+; POLYCHROMASIA 1+
[2018-11-29] MEDS: LIPASE/PROTEASE/AMYLASE 4,200 unit CAPSULE.DR PO SCH ×2 (16:42→20:50)
[2018-11-29] MEDS ORDERED: lisinopril 20mg tablet PO ONE (16:50)
[2018-11-29] MEDS ORDERED: tamsulosin 0.4mg capsule PO ONE (16:50)
[2018-11-29 18:00] VITALS: BP 113/59
--- NOTE | 2018-11-29 18:00 | NUR ---
Patient in room ORTHO 4016. I have received report from ILEANA Baer and had the opportunity to ask questions and assume patient care.
--- NOTE | 2018-11-29 18:15 | NUR ---
Problems reprioritized. Patient report given, questions answered & plan of care reviewed with Rosana.
[2018-11-29] MEDS: HYDROcodone/acetaminophen 10/325mg tab PO PRN (18:53)
--- NOTE | 2018-11-29 19:06 | NUR ---
Problems reprioritized. Patient report given, questions answered & plan of care reviewed with ILEANA Nathan.
--- NOTE | 2018-11-29 19:09 | NUR ---
Patient in room ORTHO 4016. I have received report from RICKI TEJEDA and had the opportunity to ask questions and assume patient care.
[2018-11-29] MEDS: ferrous sulfate 325mg tablet PO SCH (20:49)
[2018-11-29] MEDS: lactobacillus rhamnosus 10,000 MMU CELLS/CAPSULE PO SCH (20:49)
[2018-11-29] MEDS: insulin glargine (Lantus) pen - multi-dose SQ SCH (20:54)
[2018-11-29 23:00] VITALS: BP 114/64
[2018-11-29] MEDS ORDERED: CefTRIAXone/D5W-Rocephin 1gm 50 ML IV SCH (23:00)
[2018-11-30] MEDS: normal saline 1000ml 1,000 ML IV SCH ×2 (01:19→14:51)
[2018-11-30] MEDS: vancomycin inj 1,250 MG in normal saline 250ml IV soln 250 ML IV SCH ×2 (05:44→18:39)
[2018-11-30 06:00] VITALS: BP 126/57
--- NOTE | 2018-11-30 06:46 | NUR ---
Problems reprioritized. Patient report given, questions answered & plan of care reviewed with HARRISON TEJEDA.
--- NOTE | 2018-11-30 06:46 | NUR ---
Problems reprioritized. Patient report given, questions answered & plan of care reviewed with HARRISON TEJEDA.
[2018-11-30] MEDS: timolol maleate 0.25% ophthalmic drops 10ml EACHEYE SCH (08:00)
[2018-11-30] MEDS ORDERED: timolol 0.5% ophthalmic solution 5ml bottle EACHEYE SCH (08:00)
[2018-11-30] MEDS: morphine 4 MG/ML inj SYRINge IV PRN (09:28)
[2018-11-30] MEDS: enoxaparin 40mg/0.4ml syringe SUBCUT SCH (09:28)
[2018-11-30] MEDS: duloxetine 30mg CAPSULE.DR PO SCH (09:29)
[2018-11-30] MEDS: levoTHYROXINE 25mcg tablet PO SCH (09:29)
[2018-11-30] MEDS: levoTHYROXINE 112mcg tablet PO SCH (09:29)
[2018-11-30] MEDS: tamsulosin 0.4mg capsule PO SCH (09:30)
[2018-11-30] MEDS: cyanocobalamin 500mcg tablet PO SCH (09:30)
[2018-11-30] MEDS: lisinopril 20mg tablet PO SCH (09:31)
[2018-11-30] MEDS: vitamin D (cholecalciferol) 1,000 unit tablet PO SCH (09:31)
[2018-11-30] MEDS: multivitamins, therapeutics tablet PO SCH (09:31)
[2018-11-30] MEDS: atorvastatin 20mg tablet PO SCH (09:32)
[2018-11-30] MEDS: CefTRIAXone 2gm/D5W 50ml 50 ML IV SCH (09:32)
[2018-11-30] MEDS: lactobacillus rhamnosus 10,000 MMU CELLS/CAPSULE PO SCH ×2 (09:33→20:30)
[2018-11-30] MEDS: ferrous sulfate 325mg tablet PO SCH ×3 (09:33→20:30)
[2018-11-30] MEDS: pyridoxine 50mg tablet PO SCH (09:34)
[2018-11-30] MEDS: LIPASE/PROTEASE/AMYLASE 4,200 unit CAPSULE.DR PO SCH ×4 (09:36→21:47)
[2018-11-30 10:00] VITALS: BP 117/56
[2018-11-30 12:02] LABS: INR 1.1 INR; PROTHROMBIN TIME 11.3 SECONDS (9.0-12.0)
[2018-11-30] MEDS ORDERED: VANCOMYCIN LEVEL IV ONE (17:30)
[2018-11-30 18:00] VITALS: BP 114/53
--- NOTE | 2018-11-30 18:30 | NUR ---
Patient in room ORTHO 4016. I have received report from ILEANA Montoya and had the opportunity to ask questions and assume patient care. Patient awake and alert. Dinner tray ordered, as it did not come up with dietary cart.
--- NOTE | 2018-11-30 19:04 | NUR ---
Problems reprioritized. Patient report given, questions answered & plan of care reviewed with Belkis TEJEDA.
[2018-11-30] MEDS ORDERED: warfarin 10mg tablet PO ONE (20:00)
--- NOTE | 2018-11-30 20:00 | NUR ---
Patient just got dinner tray. Will take his BG later than scheduled time.
[2018-11-30] MEDS: insulin glargine (Lantus) pen - multi-dose SQ SCH (21:00)
[2018-11-30] MEDS: HYDROcodone/acetaminophen 10/325mg tab PO PRN (21:52)
[2018-11-30 22:00] VITALS: BP 131/66
--- NOTE | 2018-11-30 23:00 | NUR ---
BG 193. Lantus was held at 2100, as patient had not met protocol at that time. Patient had crackers and yogurt with enzymes at 2300, which may have effected his BG level.
[2018-12-01] VITALS (21 sets, daily range): BP systolic 79–158; BP diastolic 47–74
--- NOTE | 2018-12-01 00:45 | NUR ---
Patient up to shower for pre op prep.
[2018-12-01] MEDS: normal saline 1000ml 1,000 ML IV SCH ×3 (02:44→21:58)
[2018-12-01] MEDS: vancomycin inj 1,250 MG in normal saline 250ml IV soln 250 ML IV SCH ×2 (05:51→20:11)
--- NOTE | 2018-12-01 06:16 | NUR ---
Problems reprioritized. Patient report given, questions answered & plan of care reviewed with ILEANA Dozier.
[2018-12-01] MEDS: levoTHYROXINE 112mcg tablet PO SCH (07:24)
[2018-12-01] MEDS: levoTHYROXINE 25mcg tablet PO SCH (07:24)
[2018-12-01] MEDS: LIPASE/PROTEASE/AMYLASE 4,200 unit CAPSULE.DR PO SCH ×4 (07:30→21:13)
[2018-12-01] MEDS ORDERED: ROPIVAcaine 0.5% (5mg/ml) 30ml vial ONE (07:32)
[2018-12-01] MEDS ORDERED: tetracaine 1% (10mg/ml) pres. free inj. ONE (07:32)
[2018-12-01] MEDS ORDERED: MIDAZolam 1mg/ml 10ml vial ONE (07:34)
[2018-12-01] MEDS ORDERED: ringers solution, lacted 1,000 ML IV SCH (07:39)
[2018-12-01] MEDS ORDERED: hydrALAZINE 20mg/ml inj. IV PRN (07:40)
[2018-12-01] MEDS ORDERED: morphine 4 MG/ML inj SYRINge IV PRN ×2 (07:40)
[2018-12-01] MEDS ORDERED: ondansetron/PF 4mg/2ml inj IV PRN ×3 (07:40→09:55)
[2018-12-01] MEDS ORDERED: labetalol 20mg/4ml (5mg/ml) syringe IV PRN (07:40)
[2018-12-01] MEDS ORDERED: fentaNYL/PF 50MCG/1 ML 2ML syringe IV PRN ×2 (07:40)
[2018-12-01] MEDS ORDERED: morphine /PF 1mg/ml 10ml inj. ONE (07:48)
[2018-12-01] MEDS ORDERED: fentaNYL/PF 50MCG/1 ML 2ML syringe ONE (07:49)
[2018-12-01] MEDS: ferrous sulfate 325mg tablet PO SCH ×3 (08:00→20:11)
[2018-12-01] MEDS: enoxaparin 40mg/0.4ml syringe SUBCUT SCH (08:00)
[2018-12-01] MEDS: timolol maleate 0.25% ophthalmic drops 10ml EACHEYE SCH (08:00)
[2018-12-01] MEDS ORDERED: tranexamic acid inj. 1,500 MG in normal saline 100ml IV soln 100 ML IV ONE (08:35)
[2018-12-01] MEDS ORDERED: diphenhydrAMINE 50 mg/ml inj IV PRN (08:40)
--- NOTE | 2018-12-01 09:50 | NUR ---
Received from OR via bed, accompanied by Anesthesiologist. Report received. Initial physical assessment done and recorded.
[2018-12-01] MEDS ORDERED: HYDROmorphone 1 mg/ml syringe IV PRN (09:55)
[2018-12-01] MEDS ORDERED: diphenhydrAMINE 25mg capsule PO PRN ×2 (09:55)
[2018-12-01] MEDS ORDERED: acetaminophen 325mg tablet PO PRN (09:55)
[2018-12-01] MEDS ORDERED: dextrose ORAL solution 15 GM/59 ML bottle PO PRN ×2 (09:55)
[2018-12-01] MEDS ORDERED: glucagon, human recombinant 1mg kit SUBCUT PRN (09:55)
[2018-12-01] MEDS ORDERED: dextrose 50%-water 50ml dispensing syringe IV PRN ×2 (09:55)
[2018-12-01] MEDS ORDERED: bisacodyl 10mg suppository rectal RC PRN (09:55)
[2018-12-01] MEDS ORDERED: potassium cl 20mEq in 1/2 NS 1,000 ML IV SCH (09:55)
[2018-12-01] MEDS ORDERED: insulin Lispro (HumaLOG) vial - multi-dose SQ SCH (09:55)
[2018-12-01] MEDS ORDERED: magnesium hydroxide 30ml (MOM) UD suspension PO PRN (09:55)
[2018-12-01] MEDS ORDERED: MESSAGE TO PHARMACY PO ONE (09:55)
--- NOTE | 2018-12-01 11:30 | NUR ---
Discharge criteria met, report to receiving floor. Transferred to room in stable condition.
[2018-12-01 12:00] LABS: ALBUMIN 2.3 G/DL (3.4-5.0); ANION GAP 10 (8-16); BLOOD UREA NITROGEN 13 MG/DL (7-18); BUN/CREATININE RATIO 15.1 (5.4-32.0); CALCIUM 8.3 MG/DL (8.5-10.1); CHLORIDE 106 MMOL/L (99-107); CREATININE 0.86 MG/DL (0.60-1.10); GLUCOSE 128 MG/DL (70-104); SODIUM 138 MMOL/L (135-145); TOTAL CARBON DIOXIDE 22.4 MMOL/L (24-32); eGFR 85 ML/MIN
[2018-12-01 12:02] LABS: POTASSIUM 4.7 MMOL/L (3.5-5.1)
[2018-12-01] MEDS: CefTRIAXone 2gm/D5W 50ml 50 ML IV SCH (12:14)
--- NOTE | 2018-12-01 13:30 | NUR ---
Patient does not remember that he had surgery this am. Found standing at side of bed. Assist back to bed, re-instructed to use call light. Tabs alarm placed on patient.
[2018-12-01] MEDS: pyridoxine 50mg tablet PO SCH (15:14)
[2018-12-01] MEDS: lactobacillus rhamnosus 10,000 MMU CELLS/CAPSULE PO SCH ×2 (15:15→20:11)
[2018-12-01] MEDS: tamsulosin 0.4mg capsule PO SCH (15:15)
[2018-12-01] MEDS: cyanocobalamin 500mcg tablet PO SCH (15:15)
[2018-12-01] MEDS: duloxetine 30mg CAPSULE.DR PO SCH (15:15)
[2018-12-01] MEDS: lisinopril 20mg tablet PO SCH (15:15)
[2018-12-01] MEDS: vitamin D (cholecalciferol) 1,000 unit tablet PO SCH (15:15)
[2018-12-01] MEDS: multivitamins, therapeutics tablet PO SCH (15:16)
[2018-12-01] MEDS: atorvastatin 20mg tablet PO SCH (15:16)
[2018-12-01] MEDS: gabapentin 300mg capsule PO SCH ×2 (15:23→20:11)
[2018-12-01] MEDS: ceFAZolin 1GM/D5W- ADD-VANTAGE 50 ML IV SCH (17:48)
--- NOTE | 2018-12-01 18:47 | NUR ---
REPORT REC'D FROM ILEANA WEI.
[2018-12-01] MEDS ORDERED: vancomycin/NS 1 GM ADD-VANTAGE 250 ML IV SCH (20:00)
[2018-12-01] MEDS ORDERED: glimepiride 1 MG tablet PO SCH (20:00)
[2018-12-01] MEDS: ascorbic acid 500mg tablet PO SCH (20:11)
[2018-12-01] MEDS: oxyCODONE/APAP 5-325mg tablet PO PRN (20:12)
[2018-12-01] MEDS: sennosides 8.6mg tablet PO SCH (20:12)
[2018-12-01] MEDS: insulin glargine (Lantus) pen - multi-dose SQ SCH ×2 (21:00)
[2018-12-01] MEDS: morphine 4 MG/ML inj SYRINge IV PRN (21:14)
[2018-12-02] MEDS: ceFAZolin 1GM/D5W- ADD-VANTAGE 50 ML IV SCH (00:02)
[2018-12-02] MEDS: normal saline 1000ml 1,000 ML IV SCH ×2 (03:40→17:28)
[2018-12-02] MEDS: oxyCODONE/APAP 5-325mg tablet PO PRN ×4 (03:52→20:25)
[2018-12-02] MEDS: vancomycin inj 1,250 MG in normal saline 250ml IV soln 250 ML IV SCH ×2 (05:31→17:29)
--- NOTE | 2018-12-02 05:40 | NUR ---
pt states his pain is 8-9/10 after giving percocet 5/325 2tabs. pt is post op day 1 and will have PT eval this am. will give MS 4mg for breakthrough pain and increased pain of PT.
[2018-12-02] MEDS: morphine 4 MG/ML inj SYRINge IV PRN ×2 (05:43→10:37)
[2018-12-02 06:00] VITALS: BP 132/69
--- NOTE | 2018-12-02 06:24 | NUR ---
REPORT GIVEN TO ILEANA LOMBARDI.
[2018-12-02 07:11] LABS: BASOPHILS % (AUTO) 0.4 % (0-1); EOSINOPHILS # (AUTO) 0.3 X10'3 (0-0.9); EOSINOPHILS % (AUTO) 5.5 % (0-6); HEMATOCRIT 26.1 % (42.0-52.0); HEMOGLOBIN 8.5 g/dl (14.0-17.9); LYMPHOCYTES # (AUTO) 0.8 X10'3 (1.1-4.8); LYMPHOCYTES % (AUTO) 14.8 % (21-51); MEAN CORPUSCULAR HEMOGLOBIN 29.6 PG (27.0-31.0); MEAN CORPUSCULAR HGB CONC 32.6 g/dL (33.0-36.5); MEAN CORPUSCULAR VOLUME 90.7 FL (78-98); MEAN PLATELET VOLUME 7.8 FL (7.4-10.4); MONOCYTES # (AUTO) 0.9 X10'3 (0-0.9); MONOCYTES % (AUTO) 16.7 % (2-12); NEUTROPHILS # (AUTO) 3.4 X10'3 (1.8-7.7); NEUTROPHILS % (AUTO) 62.6 % (42-75); PLATELET COUNT 244 X10'3 (140-440); RED BLOOD COUNT 2.88 X10'6 (4.70-6.10); RED CELL DISTRIBUTION WIDTH 18.5 % (11.5-14.5); WHITE BLOOD COUNT 5.5 X10'3 (4.5-11.0)
[2018-12-02 07:27] LABS: INR 1.3 INR; PROTHROMBIN TIME 12.9 SECONDS (9.0-12.0)
[2018-12-02 08:06] LABS: ALANINE AMINOTRANSFERASE 26 U/L (12-78); ALBUMIN 2.3 G/DL (3.4-5.0); ALBUMIN/GLOBULIN RATIO 0.6 (1.1-1.5); ALKALINE PHOSPHATASE 58 IU/L (46-116); ANION GAP 9 (8-16); ASPARTATE AMINO TRANSFERASE 27 U/L (10-37); BILIRUBIN,TOTAL 0.2 MG/DL (0.1-1.0); BLOOD UREA NITROGEN 12 MG/DL (7-18); BUN/CREATININE RATIO 11.2 (5.4-32.0); CALCIUM 8.4 MG/DL (8.5-10.1); CHLORIDE 104 MMOL/L (99-107); CREATININE 1.07 MG/DL (0.60-1.10); GLUCOSE 157 MG/DL (70-104); POTASSIUM 4.7 MMOL/L (3.5-5.1); SODIUM 137 MMOL/L (135-145); TOTAL CARBON DIOXIDE 23.9 MMOL/L (24-32); TOTAL PROTEIN 6.1 G/DL (6.4-8.2); eGFR 66 ML/MIN
[2018-12-02] MEDS: LIPASE/PROTEASE/AMYLASE 4,200 unit CAPSULE.DR PO SCH ×4 (08:29→20:26)
[2018-12-02] MEDS: levoTHYROXINE 25mcg tablet PO SCH (08:29)
[2018-12-02] MEDS: levoTHYROXINE 112mcg tablet PO SCH (08:29)
[2018-12-02] MEDS: pioglitazone 15mg tablet PO SCH (08:33)
[2018-12-02] MEDS: lactobacillus rhamnosus 10,000 MMU CELLS/CAPSULE PO SCH ×2 (08:33→20:25)
[2018-12-02] MEDS: duloxetine 30mg CAPSULE.DR PO SCH (08:34)
[2018-12-02] MEDS: ferrous sulfate 325mg tablet PO SCH ×3 (08:34→20:25)
[2018-12-02] MEDS: gabapentin 300mg capsule PO SCH ×3 (08:35→20:26)
[2018-12-02] MEDS: multivitamins, therapeutics tablet PO SCH ×2 (08:35→08:37)
[2018-12-02] MEDS: atorvastatin 20mg tablet PO SCH (08:35)
[2018-12-02] MEDS: pyridoxine 50mg tablet PO SCH (08:36)
[2018-12-02] MEDS: cyanocobalamin 500mcg tablet PO SCH (08:36)
[2018-12-02] MEDS: lisinopril 20mg tablet PO SCH (08:37)
[2018-12-02] MEDS: enoxaparin 40mg/0.4ml syringe SUBCUT SCH (08:38)
[2018-12-02] MEDS: vitamin D (cholecalciferol) 1,000 unit tablet PO SCH (08:38)
[2018-12-02] MEDS: tamsulosin 0.4mg capsule PO SCH (08:41)
[2018-12-02] MEDS: ascorbic acid 500mg tablet PO SCH ×2 (08:42→20:25)
[2018-12-02 10:00] VITALS: BP 108/60
[2018-12-02] MEDS: timolol maleate 0.25% ophthalmic drops 10ml EACHEYE SCH (10:39)
[2018-12-02] MEDS: rifampin 300mg capsule PO SCH ×2 (10:50→20:26)
[2018-12-02 18:00] VITALS: BP 115/57
--- NOTE | 2018-12-02 18:10 | NUR ---
Patient in room ORTHO 4016. I have received report from ILEANA Vogel and had the opportunity to ask questions and assume patient care.
[2018-12-02] MEDS: sennosides 8.6mg tablet PO SCH (20:25)
[2018-12-02] MEDS: insulin glargine (Lantus) pen - multi-dose SQ SCH ×2 (21:00)
[2018-12-02 22:00] VITALS: BP 97/64
[2018-12-03] MEDS: oxyCODONE/APAP 5-325mg tablet PO PRN ×2 (05:04→13:54)
[2018-12-03] MEDS: vancomycin inj 1,250 MG in normal saline 250ml IV soln 250 ML IV SCH (05:25)
[2018-12-03 05:46] LABS: BASOPHILS % (AUTO) 0.6 % (0-1); EOSINOPHILS # (AUTO) 0.3 X10'3 (0-0.9); EOSINOPHILS % (AUTO) 7.3 % (0-6); HEMATOCRIT 24.3 % (42.0-52.0); HEMOGLOBIN 8.2 g/dl (14.0-17.9); LYMPHOCYTES # (AUTO) 0.6 X10'3 (1.1-4.8); LYMPHOCYTES % (AUTO) 16.1 % (21-51); MEAN CORPUSCULAR HEMOGLOBIN 30.1 PG (27.0-31.0); MEAN CORPUSCULAR HGB CONC 33.7 g/dL (33.0-36.5); MEAN CORPUSCULAR VOLUME 89.3 FL (78-98); MEAN PLATELET VOLUME 7.9 FL (7.4-10.4); MONOCYTES # (AUTO) 0.5 X10'3 (0-0.9); MONOCYTES % (AUTO) 13.3 % (2-12); NEUTROPHILS # (AUTO) 2.5 X10'3 (1.8-7.7); NEUTROPHILS % (AUTO) 62.7 % (42-75); PLATELET COUNT 237 X10'3 (140-440); RED BLOOD COUNT 2.72 X10'6 (4.70-6.10); RED CELL DISTRIBUTION WIDTH 18.2 % (11.5-14.5)
[2018-12-03 05:50] LABS: INR 1.3 INR; PROTHROMBIN TIME 12.6 SECONDS (9.0-12.0)
[2018-12-03 06:00] VITALS: BP 127/59
[2018-12-03 06:07] LABS: ALANINE AMINOTRANSFERASE 27 U/L (12-78); ALBUMIN 2.1 G/DL (3.4-5.0); ALBUMIN/GLOBULIN RATIO 0.6 (1.1-1.5); ALKALINE PHOSPHATASE 57 IU/L (46-116); ANION GAP 9 (8-16); ASPARTATE AMINO TRANSFERASE 26 U/L (10-37); BILIRUBIN,TOTAL 0.5 MG/DL (0.1-1.0); BLOOD UREA NITROGEN 11 MG/DL (7-18); BUN/CREATININE RATIO 11.2 (5.4-32.0); CALCIUM 8.3 MG/DL (8.5-10.1); CHLORIDE 104 MMOL/L (99-107); CREATININE 0.98 MG/DL (0.60-1.10); GLUCOSE 111 MG/DL (70-104); POTASSIUM 4.1 MMOL/L (3.5-5.1); SODIUM 137 MMOL/L (135-145); TOTAL CARBON DIOXIDE 24.1 MMOL/L (24-32); TOTAL PROTEIN 5.7 G/DL (6.4-8.2); eGFR 73 ML/MIN
--- NOTE | 2018-12-03 06:27 | NUR ---
Problems reprioritized. Patient report given, questions answered & plan of care reviewed with ILEANA Dozier.
[2018-12-03] MEDS: multivitamins, therapeutics tablet PO SCH ×2 (08:00→09:25)
[2018-12-03] MEDS: timolol maleate 0.25% ophthalmic drops 10ml EACHEYE SCH (09:25)
[2018-12-03] MEDS: pioglitazone 15mg tablet PO SCH (09:25)
[2018-12-03] MEDS: levoTHYROXINE 25mcg tablet PO SCH (09:25)
[2018-12-03] MEDS: pyridoxine 50mg tablet PO SCH (09:26)
[2018-12-03] MEDS: rifampin 300mg capsule PO SCH (09:26)
[2018-12-03] MEDS: levoTHYROXINE 112mcg tablet PO SCH (09:26)
[2018-12-03] MEDS: lactobacillus rhamnosus 10,000 MMU CELLS/CAPSULE PO SCH (09:27)
[2018-12-03] MEDS: tamsulosin 0.4mg capsule PO SCH (09:27)
[2018-12-03] MEDS: LIPASE/PROTEASE/AMYLASE 4,200 unit CAPSULE.DR PO SCH ×3 (09:28→16:36)
[2018-12-03] MEDS: lisinopril 20mg tablet PO SCH (09:29)
[2018-12-03] MEDS ORDERED: acetaminophen 325mg tablet PO PRN (09:55)
[2018-12-03] MEDS: enoxaparin 40mg/0.4ml syringe SUBCUT SCH (09:57)
[2018-12-03] MEDS: ferrous sulfate 325mg tablet PO SCH ×2 (09:59→12:44)
[2018-12-03] MEDS: atorvastatin 20mg tablet PO SCH (09:59)
[2018-12-03] MEDS: duloxetine 30mg CAPSULE.DR PO SCH (09:59)
[2018-12-03] MEDS: gabapentin 300mg capsule PO SCH ×2 (09:59→12:44)
[2018-12-03 10:00] VITALS: BP 132/64
--- NOTE | 2018-12-03 11:37 | NUR ---
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 Hx DM A1C <7, multiple myeloma. PO 100% carb controlled meals meeting needs. WBC 4.0 today; RD d/w PROVINCE ARCHIVIST who shares to continue probiotic since on vancomycin. LBM 12/01. Will continue to monitor. Rec: 1. continue carb controlled diet 2. monitor for high protein ed appropriateness post-op 3. continue probiotic per PROVINCE ARCHIVIST 4. wt per rx Addendum: 12/03/18 at [address] Amended: Links added.
[2018-12-03] MEDS: vitamin D (cholecalciferol) 1,000 unit tablet PO SCH (12:44)
[2018-12-03] MEDS: cyanocobalamin 500mcg tablet PO SCH (12:44)
[2018-12-03] MEDS: ascorbic acid 500mg tablet PO SCH (12:44)
== END 2018-12-03 16:42 | DRG 486 ==
LOC: ER 21:23 → ED HOLD 23:58 → ORTHO 4S 11-29 08:10 → UNDODISIN 11-29 16:05
PROVIDERS: ADMIT Hospitalist; ATTEND Internal Medicine
PROC: 0SBD0ZZ Excision of Left Knee Joint, Open Approach (ICD-10-PCS; 2018-12-01)
PROC: 0SUW09Z Supplement Left Knee Joint, Tibial Surface with Liner, Open Approach (ICD-10-PCS; 2018-12-01)
PROC: 3E0T3BZ Introduction of Anesthetic Agent into Peripheral Nerves and Plexi, Percutaneous Approach (ICD-10-PCS; 2018-12-01)
PROC: 0SBD0ZX Excision of Left Knee Joint, Open Approach, Diagnostic (ICD-10-PCS; 2018-12-01)
PROC: 0SPD09Z Removal of Liner from Left Knee Joint, Open Approach (ICD-10-PCS; principal; 2018-12-01 07:45)
PROC: 02HV33Z Insertion of Infusion Device into Superior Vena Cava, Percutaneous Approach (ICD-10-PCS; 2018-12-02)
PROC: 4A02X4A Measurement of Cardiac Electrical Activity, Guidance, External Approach (ICD-10-PCS; 2018-12-02)
PROC: B548ZZA Ultrasonography of Superior Vena Cava, Guidance (ICD-10-PCS; 2018-12-02)
DX: T84.54XA Infection and inflammatory reaction due to internal left knee prosthesis, initial encounter (principal); M00.9 Pyogenic arthritis, unspecified; C90.00 Multiple myeloma not having achieved remission; N39.0 Urinary tract infection, site not specified; I25.10 Atherosclerotic heart disease of native coronary artery without angina pectoris; D64.9 Anemia, unspecified; E11.9 Type 2 diabetes mellitus without complications; E78.5 Hyperlipidemia, unspecified; I10 Essential (primary) hypertension; J45.909 Unspecified asthma, uncomplicated; N40.0 Benign prostatic hyperplasia without lower urinary tract symptoms; E03.9 Hypothyroidism, unspecified; Z96.653 Presence of artificial knee joint, bilateral; Z96.612 Presence of left artificial shoulder joint; Z96.611 Presence of right artificial shoulder joint; Y83.1 Surgical operation with implant of artificial internal device as the cause of abnormal reaction of the patient, or of later complication, without mention of misadventure at the time of the procedure; I25.2 Old myocardial infarction; Z95.5 Presence of coronary angioplasty implant and graft; Z87.891 Personal history of nicotine dependence; Z79.899 Other long term (current) drug therapy
CPT/HCPCS: 20610; 36415; 36573; 73560; 76937; 80048; 80053; 80202; 81001; 82945; 82948; 83036; 83605; 83735; 84145; 84157; 85007; 85025; 85610; 85730; 87015; 87040; 87070; 87075; 87088; 89051; 89060; 93005; 97110; 97116; 97162; 97530; 99285; A6449; A6455; A7000; C1758; C1776; G0378; J0690; J0696; J1650; J1815; J2250; J2270; J2274; J2795; J3010; J3370; J7030; J7120

== ENCOUNTER 2019-06-29 09:51 | Inpatient (IN) | payer MEDICARE, BC ==
[~2019-06-29] VITALS: Ht 170.2 cm; Wt 113.0 kg
[~2019-06-29 09:51] MED LIST changes: -AMYL1CAP56 PO; -CHOL100044 PO; -CYAN-19 PO; -ESOM40CA54 PO; -FERR325T28 PO; +GLIM1TAB3 PO; -GLIM1TAB46 PO; +HYDR-3972 PO; -LEVO125T8 PO; +LEVO137T2 PO; -PYRI50TA10 PO; -temazepam 15mg capsule PO PRN
[2019-06-29] MEDS ORDERED: normal saline 1000ML IV soln IVB ONE (10:30)
[2019-06-29] MEDS ORDERED: pantoprazole 40 MG vial IV ONE (10:30)
[2019-06-29 10:41] LABS: BASOPHILS % (AUTO) 0.7 % (0-1); EOSINOPHILS # (AUTO) 0.2 X10'3 (0-0.9); EOSINOPHILS % (AUTO) 4.2 % (0-6); HEMATOCRIT 32.5 % (42.0-52.0); LYMPHOCYTES # (AUTO) 1.4 X10'3 (1.1-4.8); LYMPHOCYTES % (AUTO) 27.4 % (21-51); MEAN CORPUSCULAR HEMOGLOBIN 33.2 PG (27.0-31.0); MEAN CORPUSCULAR HGB CONC 33.9 g/dL (33.0-36.5); MEAN CORPUSCULAR VOLUME 98.1 FL (78-98); MEAN PLATELET VOLUME 9.2 FL (7.4-10.4); MONOCYTES # (AUTO) 0.7 X10'3 (0-0.9); NEUTROPHILS # (AUTO) 2.8 X10'3 (1.8-7.7); NEUTROPHILS % (AUTO) 54.7 % (42-75); PLATELET COUNT 190 X10'3 (140-440); RED BLOOD COUNT 3.31 X10'6 (4.70-6.10); RED CELL DISTRIBUTION WIDTH 15.1 % (11.5-14.5); WHITE BLOOD COUNT 5.1 X10'3 (4.5-11.0)
[2019-06-29 10:55] LABS: PARTIAL THROMBOPLASTIN TIME 35 SECONDS (22-32)
[2019-06-29 10:56] LABS: ALANINE AMINOTRANSFERASE 22 U/L (12-78); ALBUMIN 3.3 G/DL (3.4-5.0); ALBUMIN/GLOBULIN RATIO 1.2 (1.1-1.5); ALKALINE PHOSPHATASE 70 IU/L (46-116); ANION GAP 6 (8-16); BILIRUBIN,TOTAL 0.3 MG/DL (0.1-1.0); BLOOD UREA NITROGEN 29 MG/DL (7-18); BUN/CREATININE RATIO 24.2 (5.4-32.0); CALCIUM 8.7 MG/DL (8.5-10.1); CHLORIDE 107 MMOL/L (99-107); SODIUM 139 MMOL/L (135-145); TOTAL CARBON DIOXIDE 26.3 MMOL/L (24-32); TOTAL PROTEIN 6.1 G/DL (6.4-8.2); eGFR 57 ML/MIN
--- NOTE | 2019-06-29 11:03 | NUR ---
PT STOOD AT BEDSIDE USING URINAL, PROVIDED SAMPLE, URINE SAMPLE SENT TO LAB, PT ORIENTED TO ROOM AND CALL LIGHT, OFFERED BLANKET BUT DECLINE AT THIS TIME, UPDATED PT TO PLAN OF CARE.
[2019-06-29 11:07] LABS: ASPARTATE AMINO TRANSFERASE 18 U/L (10-37); GLUCOSE 111 MG/DL (70-104); POTASSIUM 4.5 MMOL/L (3.5-5.1)
[2019-06-29 11:13] LABS: CLARITY,URINE CLEAR (Clear); COLOR,URINE YELLOW (Yellow); GLUCOSE, URINE NEGATIVE (Neg); KETONES,URINE NEGATIVE (Neg); LEUKOCYTE ESTERASE ,URINE NEGATIVE (Neg); NITRITES, URINE NEGATIVE (Neg); OCCULT BLOOD,URINE NEGATIVE (Neg); PROTEIN,URINE NEGATIVE (Neg); UROBILINOGEN,URINE 0.2 E.U/dL (0.2-1.0)
[2019-06-29 11:19] LABS: UA COLLECTION TYPE VOIDED
[2019-06-29] MEDS ORDERED: ondansetron/PF 4mg/2ml inj IV PRN (12:05)
[2019-06-29] MEDS ORDERED: mag hydrox/Alum hydrox/simeth 30ml oral suspension PO PRN (12:05)
[2019-06-29] MEDS ORDERED: magnesium hydroxide 30ml (MOM) UD suspension PO PRN (12:05)
[2019-06-29] MEDS ORDERED: acetaminophen 325mg tablet PO PRN (12:05)
[2019-06-29] MEDS ORDERED: LIPA1CAP18 PO (12:13)
[2019-06-29] MEDS ORDERED: LEVO175T2 PO (12:13)
[2019-06-29] MEDS ORDERED: DULO60CA45 PO (12:13)
[2019-06-29] MEDS ORDERED: DOXY-243 PO (12:18)
[2019-06-29] MEDS: normal saline 1000ml 1,000 ML IV SCH ×2 (12:25→22:06)
--- NOTE | 2019-06-29 12:26 | NUR ---
TEX AT [facility] FOR EVALUATION NOW, ICE WATER AND ICE CHIPS PLACED ON COUNTER AWAY FROM PT TEX HAS ORDERED NPO, MAGDI PRIMARY NURSE INFORMED.
[2019-06-29] MEDS: pantoprazole 40MG/NS 100ML BAG 100 ML IV SCH ×3 (12:31→22:08)
--- NOTE | 2019-06-29 13:00 | NUR ---
Patient in room . I have received report from MAGDI TEJEDA and had the opportunity to ask questions and assume patient care.
[2019-06-29 13:21] LABS: HEMATOCRIT 31.2 % (42.0-52.0); HEMOGLOBIN 10.3 g/dl (14.0-17.9); MEAN CORPUSCULAR HEMOGLOBIN 32.4 PG (27.0-31.0); MEAN CORPUSCULAR VOLUME 98.3 FL (78-98); MEAN PLATELET VOLUME 9.3 FL (7.4-10.4); PLATELET COUNT 165 X10'3 (140-440); RED BLOOD COUNT 3.17 X10'6 (4.70-6.10); RED CELL DISTRIBUTION WIDTH 15.2 % (11.5-14.5); WHITE BLOOD COUNT 5.6 X10'3 (4.5-11.0)
[2019-06-29 13:38] VITALS: BP 150/71
--- NOTE | 2019-06-29 18:30 | NUR ---
Problems reprioritized. Patient report given, questions answered & plan of care reviewed with Pat RN.
[2019-06-29 18:32] LABS: HEMOGLOBIN 10.4 g/dl (14.0-17.9); MEAN CORPUSCULAR HEMOGLOBIN 32.6 PG (27.0-31.0); MEAN CORPUSCULAR HGB CONC 33.4 g/dL (33.0-36.5); MEAN CORPUSCULAR VOLUME 97.6 FL (78-98); MEAN PLATELET VOLUME 9.1 FL (7.4-10.4); PLATELET COUNT 177 X10'3 (140-440); RED BLOOD COUNT 3.17 X10'6 (4.70-6.10); RED CELL DISTRIBUTION WIDTH 15.3 % (11.5-14.5)
[2019-06-29] MEDS ORDERED: FERR325T28 PO (19:18)
[2019-06-29] MEDS ORDERED: HYDROcodone/acetaminophen 10/325mg tab PO PRN (19:40)
[2019-06-29] MEDS ORDERED: ALPRAZolam 0.25mg tablet PO PRN (19:40)
[2019-06-29] MEDS ORDERED: nitroGLYCERIN 0.4mg SUBLingual tab SL PRN (19:40)
[2019-06-29 20:00] VITALS: BP 130/62
[2019-06-30] VITALS: BP 112/56
[2019-06-30 00:36] LABS: HEMOGLOBIN 10.1 g/dl (14.0-17.9); MEAN CORPUSCULAR HEMOGLOBIN 32.9 PG (27.0-31.0); MEAN CORPUSCULAR HGB CONC 33.8 g/dL (33.0-36.5); MEAN CORPUSCULAR VOLUME 97.3 FL (78-98); PLATELET COUNT 168 X10'3 (140-440); RED BLOOD COUNT 3.08 X10'6 (4.70-6.10); RED CELL DISTRIBUTION WIDTH 15.3 % (11.5-14.5); WHITE BLOOD COUNT 4.3 X10'3 (4.5-11.0)
[2019-06-30] MEDS: pantoprazole 40MG/NS 100ML BAG 100 ML IV SCH ×2 (03:26→08:31)
--- NOTE | 2019-06-30 06:30 | NUR ---
Patient in room NOHEMI 356. I have received report from Pat RN and had the opportunity to ask questions and assume patient care.
[2019-06-30] MEDS ORDERED: LIPASE/PROTEASE/AMYLASE 4,200 unit CAPSULE.DR PO SCH (07:00)
[2019-06-30 07:41] LABS: BASOPHILS % (AUTO) 0.6 % (0-1); EOSINOPHILS # (AUTO) 0.2 X10'3 (0-0.9); EOSINOPHILS % (AUTO) 4.5 % (0-6); HEMATOCRIT 30.7 % (42.0-52.0); HEMOGLOBIN 10.2 g/dl (14.0-17.9); LYMPHOCYTES % (AUTO) 24.8 % (21-51); MEAN CORPUSCULAR HEMOGLOBIN 32.7 PG (27.0-31.0); MEAN CORPUSCULAR HGB CONC 33.1 g/dL (33.0-36.5); MEAN CORPUSCULAR VOLUME 98.6 FL (78-98); MEAN PLATELET VOLUME 9.6 FL (7.4-10.4); MONOCYTES # (AUTO) 0.5 X10'3 (0-0.9); MONOCYTES % (AUTO) 11.3 % (2-12); NEUTROPHILS # (AUTO) 2.5 X10'3 (1.8-7.7); NEUTROPHILS % (AUTO) 58.8 % (42-75); PLATELET COUNT 151 X10'3 (140-440); RED BLOOD COUNT 3.12 X10'6 (4.70-6.10); RED CELL DISTRIBUTION WIDTH 15.2 % (11.5-14.5); WHITE BLOOD COUNT 4.2 X10'3 (4.5-11.0)
[2019-06-30 07:49] LABS: ALBUMIN 3.1 G/DL (3.4-5.0); ANION GAP 7 (8-16); BLOOD UREA NITROGEN 19 MG/DL (7-18); BUN/CREATININE RATIO 17.8 (5.4-32.0); CALCIUM 8.8 MG/DL (8.5-10.1); CHLORIDE 110 MMOL/L (99-107); CREATININE 1.07 MG/DL (0.60-1.10); GLUCOSE 147 MG/DL (70-104); POTASSIUM 4.5 MMOL/L (3.5-5.1); SODIUM 141 MMOL/L (135-145); TOTAL CARBON DIOXIDE 24.1 MMOL/L (24-32); eGFR 66 ML/MIN
[2019-06-30 08:00] VITALS: BP 125/63
[2019-06-30] MEDS ORDERED: tamsulosin 0.4mg capsule PO SCH (08:00)
[2019-06-30] MEDS ORDERED: levoTHYROXINE 175mcg tablet PO SCH (08:00)
[2019-06-30] MEDS ORDERED: duloxetine 30mg CAPSULE.DR PO SCH (08:00)
[2019-06-30] MEDS ORDERED: multivitamins, therapeutics tablet PO SCH (08:00)
[2019-06-30] MEDS ORDERED: lisinopril 20mg tablet PO SCH (08:00)
[2019-06-30] MEDS ORDERED: timolol 0.5% ophthalmic solution 5ml bottle EACHEYE SCH (08:00)
[2019-06-30] MEDS ORDERED: atorvastatin 20mg tablet PO SCH (08:00)
[2019-06-30] MEDS: normal saline 1000ml 1,000 ML IV SCH (08:28)
[2019-06-30 11:00] VITALS: BP 137/65
--- NOTE | 2019-06-30 12:30 | NUR ---
Patient discharge patient was instructed to follow up with PCP in one week. Patient had no new medications at time of discharge patients IV's taken out at time of discharge, both ivs were intact and whole upon discharge. Patient showed minimal signs of bleeding upon removal. Patient was taken to lobby via wheel chair where he was transported home via private vehicle.
[2019-07-29] MEDS ORDERED: LEVO137T2 PO (17:16)
== END 2019-06-30 12:00 | disposition home or self-care (01) | DRG 641 ==
LOC: ER 09:51 → SUR 3N 13:39
PROVIDERS: ADMIT Family Medicine; ATTEND Family Medicine
DX: E86.0 Dehydration (principal); I10 Essential (primary) hypertension; E11.9 Type 2 diabetes mellitus without complications; I25.10 Atherosclerotic heart disease of native coronary artery without angina pectoris; E78.00 Pure hypercholesterolemia, unspecified; E78.5 Hyperlipidemia, unspecified; J45.909 Unspecified asthma, uncomplicated; Z86.73 Personal history of transient ischemic attack (TIA), and cerebral infarction without residual deficits; Z95.5 Presence of coronary angioplasty implant and graft; I25.2 Old myocardial infarction; Z88.8 Allergy status to other drugs, medicaments and biological substances; Z80.0 Family history of malignant neoplasm of digestive organs
CPT/HCPCS: 36415; 71045; 80048; 80053; 81003; 82948; 84484; 85025; 85027; 85610; 85730; 86885; 86900; 86901; 87081; 93005; 96361; 96374; 99285; C9113; G0378; J7030

== ENCOUNTER 2019-07-07 15:12 | Inpatient (IN) | payer MEDICARE, BC ==
[~2019-07-07] VITALS: Ht 172.7 cm; Wt 109.3 kg
[~2019-07-07 15:12] MED LIST changes: +DOXY-243 PO; -DULO-31 PO; +DULO60CA45 PO; +FERR325T28 PO; -FISH12002 PO; -LEVO137T2 PO; +LEVO175T2 PO; +LIPA1CAP18 PO; -PIOG30TA10 PO
[2019-07-07 16:33] LABS: BASOPHILS % (AUTO) 0.4 % (0-1); EOSINOPHILS # (AUTO) 0.1 X10'3 (0-0.9); EOSINOPHILS % (AUTO) 2.3 % (0-6); HEMATOCRIT 26.8 % (42.0-52.0); HEMOGLOBIN 8.8 g/dl (14.0-17.9); LYMPHOCYTES # (AUTO) 0.8 X10'3 (1.1-4.8); LYMPHOCYTES % (AUTO) 15.1 % (21-51); MEAN CORPUSCULAR HEMOGLOBIN 32.9 PG (27.0-31.0); MEAN CORPUSCULAR HGB CONC 32.8 g/dL (33.0-36.5); MEAN CORPUSCULAR VOLUME 100.3 FL (78-98); MEAN PLATELET VOLUME 8.9 FL (7.4-10.4); MONOCYTES # (AUTO) 0.2 X10'3 (0-0.9); MONOCYTES % (AUTO) 3.8 % (2-12); NEUTROPHILS # (AUTO) 3.9 X10'3 (1.8-7.7); NEUTROPHILS % (AUTO) 78.4 % (42-75); PLATELET COUNT 205 X10'3 (140-440); RED BLOOD COUNT 2.67 X10'6 (4.70-6.10); RED CELL DISTRIBUTION WIDTH 16.8 % (11.5-14.5)
[2019-07-07 16:51] LABS: ALANINE AMINOTRANSFERASE 22 U/L (12-78); ALBUMIN 3.3 G/DL (3.4-5.0); ALBUMIN/GLOBULIN RATIO 1.1 (1.1-1.5); ALKALINE PHOSPHATASE 67 IU/L (46-116); ANION GAP 9 (8-16); ASPARTATE AMINO TRANSFERASE 17 U/L (10-37); BILIRUBIN,TOTAL 0.4 MG/DL (0.1-1.0); BLOOD UREA NITROGEN 25 MG/DL (7-18); BUN/CREATININE RATIO 18.4 (5.4-32.0); CALCIUM 9.4 MG/DL (8.5-10.1); CHLORIDE 106 MMOL/L (99-107); CREATININE 1.36 MG/DL (0.60-1.10); GLUCOSE 180 MG/DL (70-104); POTASSIUM 4.5 MMOL/L (3.5-5.1); SODIUM 140 MMOL/L (135-145); TOTAL CARBON DIOXIDE 24.7 MMOL/L (24-32); TOTAL PROTEIN 6.3 G/DL (6.4-8.2); eGFR 50 ML/MIN
[2019-07-07 16:55] LABS: PARTIAL THROMBOPLASTIN TIME 38 SECONDS (22-32)
--- NOTE | 2019-07-07 17:00 | NUR ---
PATIENT HAS CT COMPATIBLE PORT TO RIGHT UPPER CHEST
[2019-07-07] MEDS ORDERED: PIOG30TA71 PO (17:05)
[2019-07-07] MEDS ORDERED: pantoprazole IV 80 MG in normal saline 100ml IV soln 100 ML IV ONE ×4 (17:25)
[2019-07-07] MEDS ORDERED: pantoprazole 40 MG vial IV ONE (17:25)
[2019-07-07 17:41] LABS: TOTAL CELLS COUNTED 100
[2019-07-07 17:42] LABS: PLATELET ESTIMATE NORMAL
[2019-07-07 17:48] LABS: ANISOCYTOSIS 1+
[2019-07-07 17:51] LABS: POLYCHROMASIA 1+
[2019-07-07] MEDS ORDERED: ondansetron/PF 4mg/2ml inj IV PRN (17:55)
[2019-07-07] MEDS ORDERED: magnesium 2GM in 50ml NS 50 ML IV PRN (17:55)
[2019-07-07] MEDS ORDERED: magnesium Cl slow-release 64mg tablet PO PRN (17:55)
[2019-07-07] MEDS ORDERED: potassium CL 10mEq/100ml bag 100 ML IV PRN ×2 (17:55)
[2019-07-07] MEDS ORDERED: mag hydrox/Alum hydrox/simeth 30ml oral suspension PO PRN (17:55)
[2019-07-07] MEDS ORDERED: potassium Cl 20 mEq SR tablet PO PRN ×2 (17:55)
[2019-07-07] MEDS ORDERED: magnesium 4gm in 100ml NS 100 ML IV PRN (17:55)
[2019-07-07] MEDS ORDERED: acetaminophen 325mg tablet PO PRN (17:55)
[2019-07-07] MEDS ORDERED: nitroGLYCERIN 0.4mg SUBLingual tab SL PRN (17:55)
[2019-07-07 18:19] LABS: CLARITY,URINE CLEAR (Clear); COLOR,URINE YELLOW (Yellow); GLUCOSE, URINE NEGATIVE (Neg); KETONES,URINE NEGATIVE (Neg); LEUKOCYTE ESTERASE ,URINE NEGATIVE (Neg); NITRITES, URINE NEGATIVE (Neg); OCCULT BLOOD,URINE NEGATIVE (Neg); PH,URINE 6.5 (4.8-8.0); PROTEIN,URINE NEGATIVE (Neg); UA COLLECTION TYPE VOIDED; UROBILINOGEN,URINE 0.2 E.U/dL (0.2-1.0)
[2019-07-07] MEDS ORDERED: insulin Lispro (HumaLOG) vial - multi-dose SQ SCH (18:20)
[2019-07-07] MEDS ORDERED: dextrose 50%-water 50ml dispensing syringe IV PRN ×2 (18:20)
[2019-07-07] MEDS ORDERED: glucagon, human recombinant 1mg kit SUBCUT PRN (18:20)
[2019-07-07] MEDS ORDERED: MESSAGE TO PHARMACY PO ONE (18:20)
[2019-07-07] MEDS ORDERED: dextrose ORAL solution 15 GM/59 ML bottle PO PRN ×2 (18:20)
[2019-07-07] MEDS: pantoprazole 40MG/NS 100ML BAG 100 ML IV SCH ×2 (18:27→22:42)
[2019-07-07 18:51] LABS: HEMATOCRIT 25.1 % (42.0-52.0); HEMOGLOBIN 8.3 g/dl (14.0-17.9); MEAN CORPUSCULAR HGB CONC 32.9 g/dL (33.0-36.5); MEAN CORPUSCULAR VOLUME 100.4 FL (78-98); MEAN PLATELET VOLUME 8.8 FL (7.4-10.4); PLATELET COUNT 194 X10'3 (140-440); RED CELL DISTRIBUTION WIDTH 16.9 % (11.5-14.5); WHITE BLOOD COUNT 4.7 X10'3 (4.5-11.0)
[2019-07-07 20:28] VITALS: BP 136/71
[2019-07-07] MEDS: DOXYCYCLINE 100MG CAPSULE PO SCH (21:33)
[2019-07-07] MEDS: ferrous sulfate 325mg tablet PO SCH (21:33)
[2019-07-07] MEDS: insulin glargine (Lantus) pen - multi-dose SQ SCH (21:35)
[2019-07-07 23:30] VITALS: BP 107/62
[2019-07-08] VITALS (13 sets, daily range): BP systolic 108–142; BP diastolic 51–81
[2019-07-08] MEDS: normal saline 1000ml 1,000 ML IV SCH ×3 (00:07→20:05)
[2019-07-08 00:57] LABS: HEMATOCRIT 23.2 % (42.0-52.0); HEMOGLOBIN 7.7 g/dl (14.0-17.9); MEAN CORPUSCULAR HEMOGLOBIN 33.5 PG (27.0-31.0); MEAN CORPUSCULAR HGB CONC 33.3 g/dL (33.0-36.5); MEAN CORPUSCULAR VOLUME 100.4 FL (78-98); MEAN PLATELET VOLUME 9.1 FL (7.4-10.4); PLATELET COUNT 187 X10'3 (140-440); RED BLOOD COUNT 2.31 X10'6 (4.70-6.10); RED CELL DISTRIBUTION WIDTH 17.2 % (11.5-14.5); WHITE BLOOD COUNT 5.3 X10'3 (4.5-11.0)
[2019-07-08] MEDS: pantoprazole 40MG/NS 100ML BAG 100 ML IV SCH ×3 (03:23→14:22)
--- NOTE | 2019-07-08 06:29 | NUR ---
Problems reprioritized. Patient report given, questions answered & plan of care reviewed with ILEANA Harvey.
--- NOTE | 2019-07-08 06:30 | NUR ---
Patient in room NOHEMI 345. I have received report from Crystal Bolton RN and had the opportunity to ask questions and assume patient care. Resting, denies needs at this time.
[2019-07-08] MEDS: K and/or MAG REPLACEMENT MC SCH (06:43)
[2019-07-08] MEDS: LIPASE/PROTEASE/AMYLASE 4,200 unit CAPSULE.DR PO SCH ×3 (07:00→17:34)
[2019-07-08 07:08] LABS: HEMATOCRIT 22.2 % (42.0-52.0); HEMOGLOBIN 7.3 g/dl (14.0-17.9); MEAN CORPUSCULAR HEMOGLOBIN 33.2 PG (27.0-31.0); MEAN CORPUSCULAR VOLUME 100.7 FL (78-98); MEAN PLATELET VOLUME 9.1 FL (7.4-10.4); PLATELET COUNT 183 X10'3 (140-440); RED CELL DISTRIBUTION WIDTH 17.1 % (11.5-14.5); WHITE BLOOD COUNT 7.5 X10'3 (4.5-11.0)
[2019-07-08 07:15] LABS: ALANINE AMINOTRANSFERASE 19 U/L (12-78); ALBUMIN 2.7 G/DL (3.4-5.0); ALKALINE PHOSPHATASE 54 IU/L (46-116); ANION GAP 6 (8-16); ASPARTATE AMINO TRANSFERASE 13 U/L (10-37); BILIRUBIN,TOTAL 0.3 MG/DL (0.1-1.0); BLOOD UREA NITROGEN 23 MG/DL (7-18); BUN/CREATININE RATIO 20.2 (5.4-32.0); CALCIUM 8.1 MG/DL (8.5-10.1); CHLORIDE 110 MMOL/L (99-107); CREATININE 1.14 MG/DL (0.60-1.10); GLUCOSE 161 MG/DL (70-104); SODIUM 141 MMOL/L (135-145); TOTAL CARBON DIOXIDE 24.8 MMOL/L (24-32); TOTAL PROTEIN 5.4 G/DL (6.4-8.2); eGFR 61 ML/MIN
[2019-07-08] MEDS: timolol 0.5% ophthalmic solution 5ml bottle EACHEYE SCH (07:34)
[2019-07-08] MEDS: tamsulosin 0.4mg capsule PO SCH (07:35)
[2019-07-08] MEDS: duloxetine 30mg CAPSULE.DR PO SCH (07:35)
[2019-07-08] MEDS: levoTHYROXINE 175mcg tablet PO SCH (07:36)
[2019-07-08] MEDS: ferrous sulfate 325mg tablet PO SCH ×3 (07:36→20:05)
[2019-07-08] MEDS: lisinopril 20mg tablet PO SCH (07:36)
[2019-07-08] MEDS: multivitamins, therapeutics tablet PO SCH (07:37)
[2019-07-08] MEDS: atorvastatin 20mg tablet PO SCH (07:37)
--- NOTE | 2019-07-08 07:55 | NUR ---
Notified Dr. Garza that the patient has Actos and protocol ordered. Received order for protocol only and to hold actos. Also notified Dr. Garza of current H/H of 7.3/.2 from (7.05/13.2) No new orders at this time. Will continue to monitor.
[2019-07-08] MEDS ORDERED: pioglitazone 15mg tablet PO SCH (08:00)
[2019-07-08] MEDS: DOXYCYCLINE 100MG CAPSULE PO SCH ×2 (10:48→23:07)
[2019-07-08 12:42] LABS: MEAN CORPUSCULAR HEMOGLOBIN 33.3 PG (27.0-31.0); MEAN CORPUSCULAR HGB CONC 32.8 g/dL (33.0-36.5); MEAN CORPUSCULAR VOLUME 101.4 FL (78-98); MEAN PLATELET VOLUME 9.6 FL (7.4-10.4); PLATELET COUNT 169 X10'3 (140-440); RED BLOOD COUNT 2.07 X10'6 (4.70-6.10); RED CELL DISTRIBUTION WIDTH 17.3 % (11.5-14.5); WHITE BLOOD COUNT 8.1 X10'3 (4.5-11.0)
[2019-07-08 12:52] LABS: HEMOGLOBIN 6.9 g/dl (14.0-17.9)
[2019-07-08 12:53] LABS: HEMATOCRIT 20.9 % (42.0-52.0)
--- NOTE | 2019-07-08 13:15 | NUR ---
Received critical value of H/H of 6.9/ 20.9 at 1200 [address] 7.3/22.[address] Garza and received order to transfuse 1 unit. Will continue to monitor.
[2019-07-08] MEDS ORDERED: fentaNYL/PF 50MCG/1 ML 2ML syringe ONE (14:11)
[2019-07-08] MEDS ORDERED: LIDOcaine Viscous 15ml cup ONE (14:11)
[2019-07-08] MEDS ORDERED: MIDAZolam 5mg/5ml vial ONE (14:11)
--- NOTE | 2019-07-08 18:47 | NUR ---
Problems reprioritized. Patient report given, questions answered & plan of care reviewed with Crystal Bolton RN. Resting denies needs at this time.
[2019-07-08] MEDS: lactobacillus rhamnosus 10,000 MMU CELLS/CAPSULE PO SCH (20:05)
[2019-07-08] MEDS: pantoprazole 40mg Tablet.DR PO SCH (20:05)
[2019-07-08] MEDS: insulin glargine (Lantus) pen - multi-dose SQ SCH (21:00)
[2019-07-08 23:35] LABS: HEMATOCRIT 23.9 % (42.0-52.0); HEMOGLOBIN 7.9 g/dl (14.0-17.9); MEAN CORPUSCULAR HEMOGLOBIN 32.2 PG (27.0-31.0); MEAN CORPUSCULAR VOLUME 97.6 FL (78-98); PLATELET COUNT 169 X10'3 (140-440); RED BLOOD COUNT 2.45 X10'6 (4.70-6.10); RED CELL DISTRIBUTION WIDTH 19.2 % (11.5-14.5); WHITE BLOOD COUNT 6.7 X10'3 (4.5-11.0)
[2019-07-09] VITALS: BP 117/71
[2019-07-09] MEDS: normal saline 1000ml 1,000 ML IV SCH (06:00)
--- NOTE | 2019-07-09 06:11 | NUR ---
Problems reprioritized. Patient report given, questions answered & plan of care reviewed with ILEANA Townsend.
[2019-07-09] MEDS: LIPASE/PROTEASE/AMYLASE 4,200 unit CAPSULE.DR PO SCH (07:32)
[2019-07-09] MEDS: duloxetine 30mg CAPSULE.DR PO SCH (07:34)
[2019-07-09] MEDS: atorvastatin 20mg tablet PO SCH (07:34)
[2019-07-09] MEDS: multivitamins, therapeutics tablet PO SCH (07:35)
[2019-07-09] MEDS: tamsulosin 0.4mg capsule PO SCH (07:35)
[2019-07-09] MEDS: levoTHYROXINE 175mcg tablet PO SCH (07:36)
[2019-07-09] MEDS: pantoprazole 40mg Tablet.DR PO SCH (07:36)
[2019-07-09] MEDS: timolol 0.5% ophthalmic solution 5ml bottle EACHEYE SCH (07:36)
[2019-07-09] MEDS: ferrous sulfate 325mg tablet PO SCH (07:36)
[2019-07-09] MEDS: lisinopril 20mg tablet PO SCH (07:36)
[2019-07-09] MEDS: lactobacillus rhamnosus 10,000 MMU CELLS/CAPSULE PO SCH (07:36)
[2019-07-09 07:37] LABS: HEMATOCRIT 25.3 % (42.0-52.0); HEMOGLOBIN 8.3 g/dl (14.0-17.9); MEAN CORPUSCULAR HEMOGLOBIN 32.4 PG (27.0-31.0); MEAN CORPUSCULAR HGB CONC 32.9 g/dL (33.0-36.5); MEAN CORPUSCULAR VOLUME 98.4 FL (78-98); MEAN PLATELET VOLUME 9.5 FL (7.4-10.4); PLATELET COUNT 148 X10'3 (140-440); RED BLOOD COUNT 2.57 X10'6 (4.70-6.10); RED CELL DISTRIBUTION WIDTH 19.4 % (11.5-14.5); WHITE BLOOD COUNT 5.4 X10'3 (4.5-11.0)
[2019-07-09 07:57] LABS: ALANINE AMINOTRANSFERASE 21 U/L (12-78); ALBUMIN 2.7 G/DL (3.4-5.0); ALBUMIN/GLOBULIN RATIO 1.1 (1.1-1.5); ALKALINE PHOSPHATASE 56 IU/L (46-116); ANION GAP 9 (8-16); ASPARTATE AMINO TRANSFERASE 16 U/L (10-37); BILIRUBIN,TOTAL 0.4 MG/DL (0.1-1.0); BLOOD UREA NITROGEN 17 MG/DL (7-18); BUN/CREATININE RATIO 16.3 (5.4-32.0); CALCIUM 7.8 MG/DL (8.5-10.1); CHLORIDE 112 MMOL/L (99-107); CREATININE 1.04 MG/DL (0.60-1.10); GLUCOSE 118 MG/DL (70-104); MAGNESIUM 1.8 MG/DL (1.5-2.4); POTASSIUM 3.9 MMOL/L (3.5-5.1); SODIUM 145 MMOL/L (135-145); TOTAL PROTEIN 5.1 G/DL (6.4-8.2); eGFR 68 ML/MIN
[2019-07-09 08:00] VITALS: BP 120/59
[2019-07-09] MEDS: K and/or MAG REPLACEMENT MC SCH (08:00)
[2019-07-09] MEDS ORDERED: PANT40TA4 PO (08:06)
[2019-07-09] MEDS ORDERED: heparin sodium, porcine/PF 100unit/ml 5ML syringe IV ONE ×2 (08:15→09:40)
[2019-07-09] MEDS: DOXYCYCLINE 100MG CAPSULE PO SCH (10:16)
--- NOTE | 2019-07-09 10:24 | NUR ---
PT. DISCHARGED HOME IN A STABLE CONDITION. INDEPENDENT WITH ADLS, AND ALERT, ORIENTATED, FULL OF ENERGY TODAY. H& H WNL. IV DC'D, PRESSURE BANDAGE APPLIED, NO S/SX BLEEDING NOTED. PICC NURSE AND CHARGE REMOVED CATHETER FROM PORT ON R SIDE OF CHEST. BANDAID PLACED, NO S/SX BLEEDING NOTED. PT. GATHERED HIS BELONGINGS AND TOOK THEM WITH HIM. HIS PROVIDED TRANSPORT IN HER PRIVATE VEHICLE. PT. WAS ESCORTED TO DOWNSTAIRS BY HOSPITAL STAFF. ID WRISTBAND REMOVED. REVIEWED NEW MEDICATION- PROTONIX, PT. IS AWARE TO DIABETES TRAINER AT PHARMACY. HE IS ALSO AWARE AWARE TO RETURN TO THE NEAREST ER IF ANY MORE SIGNS OR SYMPTOMS OF BLEEDING OCCUR.
[2019-07-29] MEDS ORDERED: LEVO137T2 PO (17:16)
[2019-07-30 14:17] LABS: OCCULT BLOOD STOOL POSITIVE (Neg)
== END 2019-07-09 10:31 | disposition home or self-care (01) | DRG 377 ==
LOC: ER 15:13 → SUR 3N 20:17 → CMPBEDREQ 07-08 05:31
PROVIDERS: ADMIT Family Medicine; ATTEND Internal Medicine
PROC: 0DB68ZX Excision of Stomach, Via Natural or Artificial Opening Endoscopic, Diagnostic (ICD-10-PCS; principal; 2019-07-08)
PROC: 30233N1 Transfusion of Nonautologous Red Blood Cells into Peripheral Vein, Percutaneous Approach (ICD-10-PCS; 2019-07-08)
DX: K92.1 Melena (principal); N17.0 Acute kidney failure with tubular necrosis; C90.00 Multiple myeloma not having achieved remission; D64.9 Anemia, unspecified; E03.9 Hypothyroidism, unspecified; E11.40 Type 2 diabetes mellitus with diabetic neuropathy, unspecified; E78.00 Pure hypercholesterolemia, unspecified; E78.5 Hyperlipidemia, unspecified; I10 Essential (primary) hypertension; I25.10 Atherosclerotic heart disease of native coronary artery without angina pectoris; J45.909 Unspecified asthma, uncomplicated; K22.2 Esophageal obstruction; K29.70 Gastritis, unspecified, without bleeding; K44.9 Diaphragmatic hernia without obstruction or gangrene; N40.0 Benign prostatic hyperplasia without lower urinary tract symptoms; Z79.84 Long term (current) use of oral hypoglycemic drugs; Z79.899 Other long term (current) drug therapy; I25.2 Old myocardial infarction; Z80.0 Family history of malignant neoplasm of digestive organs; Z86.73 Personal history of transient ischemic attack (TIA), and cerebral infarction without residual deficits; Z87.11 Personal history of peptic ulcer disease; Z87.891 Personal history of nicotine dependence; Z95.5 Presence of coronary angioplasty implant and graft; Z88.6 Allergy status to analgesic agent
CPT/HCPCS: 36415; 43239; 71045; 80053; 81003; 82272; 82948; 83036; 83605; 83735; 84145; 84443; 84484; 85025; 85027; 85610; 85730; 86885; 86900; 86901; 86920; 87040; 87081; 88305; 88342; 93005; 96374; 99152; 99153; 99285; A4620; C9113; G0378; J1642; J1815; J2250; J3010; J7030; J7040; P9016

== ENCOUNTER 2019-09-24 11:09 | Inpatient (IN) | payer MEDICARE, BC ==
[~2019-09-24] VITALS: Ht 172.7 cm; Wt 109.1 kg
[2019-09-24] VITALS (8 sets, daily range): BP systolic 113–139; BP diastolic 53–70
[~2019-09-24 11:09] MED LIST changes: -ALPR-623 PO; -DOXY-243 PO; -HYDR-3972 PO; +LEVO137T2 PO; -LEVO175T2 PO; +PIOG30TA71 PO
[2019-09-24 11:48] LABS: BASOPHILS % (AUTO) 0.6 % (0-1); EOSINOPHILS # (AUTO) 0.2 X10'3 (0-0.9); EOSINOPHILS % (AUTO) 3.9 % (0-6); LYMPHOCYTES % (AUTO) 22.5 % (21-51); MEAN CORPUSCULAR HEMOGLOBIN 34.8 PG (27.0-31.0); MEAN CORPUSCULAR HGB CONC 32.9 g/dL (33.0-36.5); MEAN CORPUSCULAR VOLUME 105.7 FL (78-98); MEAN PLATELET VOLUME 8.6 FL (7.4-10.4); MONOCYTES # (AUTO) 0.6 X10'3 (0-0.9); MONOCYTES % (AUTO) 12.4 % (2-12); NEUTROPHILS # (AUTO) 2.8 X10'3 (1.8-7.7); NEUTROPHILS % (AUTO) 60.6 % (42-75); PLATELET COUNT 202 X10'3 (140-440); RED BLOOD COUNT 1.98 X10'6 (4.70-6.10); WHITE BLOOD COUNT 4.7 X10'3 (4.5-11.0)
[2019-09-24 11:51] LABS: HEMOGLOBIN 6.9 g/dl (14.0-17.9)
[2019-09-24 12:07] LABS: ALANINE AMINOTRANSFERASE 21 U/L (12-78); ALBUMIN 2.8 G/DL (3.4-5.0); ALKALINE PHOSPHATASE 62 IU/L (46-116); ANION GAP 5 (8-16); ASPARTATE AMINO TRANSFERASE 17 U/L (10-37); BILIRUBIN,TOTAL 0.4 MG/DL (0.1-1.0); BLOOD UREA NITROGEN 17 MG/DL (7-18); BUN/CREATININE RATIO 14.4 (5.4-32.0); CALCIUM 8.2 MG/DL (8.5-10.1); CHLORIDE 107 MMOL/L (99-107); CREATININE 1.18 MG/DL (0.60-1.10); GLUCOSE 133 MG/DL (70-104); POTASSIUM 4.2 MMOL/L (3.5-5.1); SODIUM 139 MMOL/L (135-145); TOTAL CARBON DIOXIDE 26.7 MMOL/L (24-32); TOTAL PROTEIN 5.5 G/DL (6.4-8.2); eGFR 59 ML/MIN
[2019-09-24 12:32] LABS: NUCLEATED RED BLOOD CELLS 1 /100WBC (0-0); PLATELET ESTIMATE NORMAL; POLYCHROMASIA 2+; TOTAL CELLS COUNTED 100
[2019-09-24 12:33] LABS: ANISOCYTOSIS 2+; ELLIPTOCYTES FEW; SCHISTOCYTES FEW; TEAR DROP CELLS FEW
[2019-09-24 12:40] LABS: GIANT PLATELET FEW; LARGE PLATELETS FEW
[2019-09-24 12:42] LABS: SMUDGE CELLS FEW
[2019-09-24] MEDS ORDERED: DOXY-224 PO (13:52)
[2019-09-24] MEDS ORDERED: PANT40TA4 PO (13:52)
[2019-09-24] MEDS ORDERED: potassium Cl 20 mEq SR tablet PO PRN ×2 (14:10)
[2019-09-24] MEDS ORDERED: magnesium 2GM in 50ml NS 50 ML IV PRN (14:10)
[2019-09-24] MEDS ORDERED: ondansetron/PF 4mg/2ml inj IV PRN (14:10)
[2019-09-24] MEDS ORDERED: magnesium Cl slow-release 64mg tablet PO PRN (14:10)
[2019-09-24] MEDS ORDERED: magnesium 4gm in 100ml NS 100 ML IV PRN (14:10)
[2019-09-24] MEDS ORDERED: potassium CL 10mEq/100ml bag 100 ML IV PRN ×2 (14:10)
--- NOTE | 2019-09-24 14:40 | NUR ---
Called [facility] about [facility], informed both units are ready
--- NOTE | 2019-09-24 14:49 | NUR ---
Called report to Gema TEJEDA, passed along that DENIZ said that [facility] units are ready
--- NOTE | 2019-09-24 14:54 | NUR ---
Received report from ILEANA Wood. Awaiting patient's arrival to room 5889B.
--- NOTE | 2019-09-24 15:06 | NUR ---
Paged Dr. Guzman regarding no telemetry order for admit. PAGER ID: [phone] MESSAGE: Kd Meyers. Rm. [phone]. Would you like for the patient to be on telemetry monitoring for the patient coming to the telemetry unit? Thank you. Gema TEJEDA x [phone]
--- NOTE | 2019-09-24 15:10 | NUR ---
Patient has arrived to room 3025A via wheel chair and transported by ETHAN Pinon from the ER. Patient is in his clothes and has been changed into a hospital gown. Patients 2 RN skin check (with ILEANA Hitchcock), physical assessment, v/s (charted), and tele monitor (#48)placement have been completed at this time. Patient has been oriented to the room: Call light within reach, BLL, SRx2, and phone within reach. Patient has no complaints at this time and has been given a TV guide per his request. Patient is near the nurses station and within view. Patient has no complaints at this time and is awaiting his blood transfusion.
--- NOTE | 2019-09-24 17:54 | NUR ---
[place] documentation: I have reviewed and agree with all interventions, assessments performed and documented by Gema Griggs RN. [place] Medication Administration: For this medication-pass time frame, all medication were reviewed, dispensed, administered and documented per hospital policy by Ann-Marie Griggs RN.
--- NOTE | 2019-09-24 18:29 | NUR ---
Problems reprioritized. Patient report given, questions answered & plan of care reviewed with ILEANA Blas. Patient stable at transfer of care.
[2019-09-24 19:10] LABS: HEMATOCRIT 23.4 % (42.0-52.0); HEMOGLOBIN 7.7 g/dl (14.0-17.9); MEAN CORPUSCULAR HEMOGLOBIN 33.9 PG (27.0-31.0); MEAN CORPUSCULAR VOLUME 102.7 FL (78-98); MEAN PLATELET VOLUME 8.9 FL (7.4-10.4); PLATELET COUNT 186 X10'3 (140-440); RED BLOOD COUNT 2.28 X10'6 (4.70-6.10); RED CELL DISTRIBUTION WIDTH 19.5 % (11.5-14.5); WHITE BLOOD COUNT 4.8 X10'3 (4.5-11.0)
[2019-09-24 20:26] LABS: ANISOCYTOSIS 2+; PLATELET ESTIMATE NORMAL; POLYCHROMASIA 1+
[2019-09-24] MEDS ORDERED: dextrose 50%-water 50ml dispensing syringe IV PRN ×2 (21:10)
[2019-09-24] MEDS ORDERED: insulin Lispro (HumaLOG) vial - multi-dose SQ SCH (21:10)
[2019-09-24] MEDS ORDERED: dextrose ORAL solution 15 GM/59 ML bottle PO PRN ×2 (21:10)
[2019-09-24] MEDS ORDERED: glucagon, human recombinant 1mg kit SUBCUT PRN (21:10)
[2019-09-24 22:02] LABS: HEMOGLOBIN A1C 5.1 % (4.5-6.2)
[2019-09-25] VITALS (8 sets, daily range): BP systolic 115–150; BP diastolic 60–90
--- NOTE | 2019-09-25 05:08 | NUR ---
Patient in room PCU 3025. I have received report from Joon Hood RN and had the opportunity to ask questions and assume patient care.
[2019-09-25 05:51] LABS: ALBUMIN 2.9 G/DL (3.4-5.0); ANION GAP 8 (8-16); BLOOD UREA NITROGEN 16 MG/DL (7-18); BUN/CREATININE RATIO 15.2 (5.4-32.0); CALCIUM 8.5 MG/DL (8.5-10.1); CHLORIDE 107 MMOL/L (99-107); CREATININE 1.05 MG/DL (0.60-1.10); GLUCOSE 132 MG/DL (70-104); SODIUM 140 MMOL/L (135-145); TOTAL CARBON DIOXIDE 25.1 MMOL/L (24-32); eGFR 67 ML/MIN
[2019-09-25 06:03] LABS: BASOPHILS % (AUTO) 0.6 % (0-1); EOSINOPHILS # (AUTO) 0.2 X10'3 (0-0.9); EOSINOPHILS % (AUTO) 4.3 % (0-6); HEMATOCRIT 26.6 % (42.0-52.0); HEMOGLOBIN 8.9 g/dl (14.0-17.9); LYMPHOCYTES # (AUTO) 0.9 X10'3 (1.1-4.8); LYMPHOCYTES % (AUTO) 21.5 % (21-51); MEAN CORPUSCULAR HEMOGLOBIN 34.2 PG (27.0-31.0); MEAN CORPUSCULAR HGB CONC 33.3 g/dL (33.0-36.5); MEAN CORPUSCULAR VOLUME 102.5 FL (78-98); MEAN PLATELET VOLUME 8.8 FL (7.4-10.4); MONOCYTES # (AUTO) 0.5 X10'3 (0-0.9); NEUTROPHILS # (AUTO) 2.7 X10'3 (1.8-7.7); NEUTROPHILS % (AUTO) 61.6 % (42-75); PLATELET COUNT 184 X10'3 (140-440); RED BLOOD COUNT 2.59 X10'6 (4.70-6.10); RED CELL DISTRIBUTION WIDTH 19.6 % (11.5-14.5); WHITE BLOOD COUNT 4.4 X10'3 (4.5-11.0)
--- NOTE | 2019-09-25 06:10 | NUR ---
Problems reprioritized. Patient report given, questions answered & plan of care reviewed with Ann-Marie Camargo RN.
--- NOTE | 2019-09-25 06:10 | NUR ---
Patient in room PCU 2175X. I have received report from Roopa TEJEDA and had the opportunity to ask questions and assume patient care.
[2019-09-25 07:26] LABS: ANISOCYTOSIS 2+; NUCLEATED RED BLOOD CELLS 1 /100WBC (0-0); PLATELET ESTIMATE NORMAL; TOTAL CELLS COUNTED 100
[2019-09-25 07:27] LABS: POLYCHROMASIA 1+
[2019-09-25] MEDS ORDERED: K and/or MAG REPLACEMENT MC SCH (08:00)
--- NOTE | 2019-09-25 11:15 | NUR ---
Patient down to GI lab for EGD, IV saline locked, tele monitor on patient. Placed in wheelchair and escorted to GI lab with GI lab staff.
[2019-09-25] MEDS ORDERED: LIDOcaine Viscous 15ml cup ONE (11:28)
[2019-09-25] MEDS ORDERED: MIDAZolam 5mg/5ml vial ONE (11:28)
[2019-09-25] MEDS ORDERED: fentaNYL/PF 50MCG/1 ML 2ML syringe ONE (11:28)
--- NOTE | 2019-09-25 13:30 | NUR ---
Patient returned from GI lab. Placed back in bed, IV saline lock, tele monitor in place. Patient is awake, alert, requesting fluids to drink. VS: 150/64, HR 88, SpO2 97% on RA, RR 18. No complaints of pain or discomfort at this time. Will review diet orders and procedure notes, continue to monitor patient.
--- NOTE | 2019-09-25 13:55 | NUR ---
Blood glucose @ 1200 not performed due to patient being in GI lab procedure, FSBS checked on return to unit @ 1350, level was 110.
--- NOTE | 2019-09-25 15:21 | NUR ---
Paged hospitalist, Dr. Guzman, regarding patient. Returned from GI lab. PAGER ID: [phone] MESSAGE: Ann-Marie x [phone]. RE Dayanna Meyers [id number]. Pt returned from EGD, no active bleed. Can I restart diet? Also, plan for patient? Patient inquiring about discharge. Thanks!
--- NOTE | 2019-09-25 17:30 | NUR ---
Per MD order, Dr. Guzman, patient is stable for discharge. Discharge packet printed and reviewed with patient, diabetes survival skills printed and reviewed with patient. He declines making an appointment, office is closed for the day, states that he will call and make PCP appointment in the AM. IV removed with cannula intact. Tele monitor removed. All discharge information reviewed with patient, all questions answered. All belongings sent with patient. Patient escorted to private vehicle via wheelchair to go home with spouse.
[2019-09-25] MEDS ORDERED: insulin glargine (Lantus) pen - multi-dose SQ SCH (21:00)
== END 2019-09-25 17:20 | disposition home or self-care (01) | DRG 812 ==
LOC: ER 11:10 → ED HOLD 14:10 → PCU 3S 15:10
PROVIDERS: ADMIT Internal Medicine; ATTEND Internal Medicine
PROC: 30233N1 Transfusion of Nonautologous Red Blood Cells into Peripheral Vein, Percutaneous Approach (ICD-10-PCS; 2019-09-24)
PROC: 0DJ08ZZ Inspection of Upper Intestinal Tract, Via Natural or Artificial Opening Endoscopic (ICD-10-PCS; principal; 2019-09-25)
DX: D64.9 Anemia, unspecified (principal); K92.2 Gastrointestinal hemorrhage, unspecified; E03.9 Hypothyroidism, unspecified; E11.9 Type 2 diabetes mellitus without complications; E78.00 Pure hypercholesterolemia, unspecified; E78.5 Hyperlipidemia, unspecified; I10 Essential (primary) hypertension; I25.119 Atherosclerotic heart disease of native coronary artery with unspecified angina pectoris; F32.9 Major depressive disorder, single episode, unspecified; J45.909 Unspecified asthma, uncomplicated; K22.2 Esophageal obstruction; K22.8 Other specified diseases of esophagus; K44.9 Diaphragmatic hernia without obstruction or gangrene; N40.0 Benign prostatic hyperplasia without lower urinary tract symptoms; T84.54XD Infection and inflammatory reaction due to internal left knee prosthesis, subsequent encounter; Z79.84 Long term (current) use of oral hypoglycemic drugs; I25.2 Old myocardial infarction; Z79.899 Other long term (current) drug therapy; Z80.0 Family history of malignant neoplasm of digestive organs; Z86.73 Personal history of transient ischemic attack (TIA), and cerebral infarction without residual deficits; Z88.6 Allergy status to analgesic agent
CPT/HCPCS: 36415; 36430; 43235; 71045; 80048; 80053; 82948; 83036; 83735; 83880; 84484; 85025; 85027; 86885; 86900; 86901; 86920; 87081; 93005; 99152; 99291; A4620; G0378; J1815; J2250; J3010; J7040; P9016

== ENCOUNTER 2020-02-01 08:35 | Inpatient (IN) | payer MEDICARE, BC ==
[~2020-02-01] VITALS: Ht 172.7 cm; Wt 104.5 kg
[~2020-02-01 08:35] MED LIST changes: +AMA1T PO; +DOXY-224 PO; -GLIM1TAB3 PO; +PANT40TA4 PO
[2020-02-01] MEDS ORDERED: famotidine/PF 10 mg/ml inj IV ONE (08:50)
[2020-02-01] MEDS ORDERED: pantoprazole 40 MG vial IV ONE (08:50)
[2020-02-01 09:25] LABS: BASOPHILS % (AUTO) 0.6 % (0-1); EOSINOPHILS # (AUTO) 0.1 X10'3 (0-0.9); EOSINOPHILS % (AUTO) 2.8 % (0-6); LYMPHOCYTES # (AUTO) 0.9 X10'3 (1.1-4.8); LYMPHOCYTES % (AUTO) 19.2 % (21-51); MEAN CORPUSCULAR HEMOGLOBIN 33.3 PG (27.0-31.0); MEAN CORPUSCULAR HGB CONC 31.3 g/dL (33.0-36.5); MEAN CORPUSCULAR VOLUME 106.4 FL (78-98); MONOCYTES # (AUTO) 0.4 X10'3 (0-0.9); NEUTROPHILS # (AUTO) 3.2 X10'3 (1.8-7.7); NEUTROPHILS % (AUTO) 68.4 % (42-75); PLATELET COUNT 234 X10'3 (140-440); RED BLOOD COUNT 2.03 X10'6 (4.70-6.10); RED CELL DISTRIBUTION WIDTH 17.8 % (11.5-14.5); WHITE BLOOD COUNT 4.7 X10'3 (4.5-11.0)
[2020-02-01 09:27] LABS: HEMOGLOBIN 6.8 g/dl (14.0-17.9)
[2020-02-01 09:28] LABS: HEMATOCRIT 21.6 % (42.0-52.0)
[2020-02-01 09:34] LABS: PARTIAL THROMBOPLASTIN TIME 30 SECONDS (22-32)
[2020-02-01 09:36] LABS: ALANINE AMINOTRANSFERASE 17 U/L (12-78); ALBUMIN 3.1 G/DL (3.4-5.0); ALBUMIN/GLOBULIN RATIO 1.1 (1.1-1.5); ALKALINE PHOSPHATASE 75 IU/L (46-116); ANION GAP 5 (8-16); ASPARTATE AMINO TRANSFERASE 17 U/L (10-37); BILIRUBIN,TOTAL 0.5 MG/DL (0.1-1.0); BLOOD UREA NITROGEN 21 MG/DL (7-18); BUN/CREATININE RATIO 14.9 (5.4-32.0); CALCIUM 8.5 MG/DL (8.5-10.1); CHLORIDE 107 MMOL/L (99-107); CREATININE 1.41 MG/DL (0.60-1.10); GLUCOSE 177 MG/DL (70-104); POTASSIUM 4.3 MMOL/L (3.5-5.1); SODIUM 139 MMOL/L (135-145); TOTAL CARBON DIOXIDE 26.6 MMOL/L (24-32); TOTAL PROTEIN 5.9 G/DL (6.4-8.2); eGFR 48 ML/MIN
--- NOTE | 2020-02-01 10:19 | NUR ---
Dr Guzman at bedside.
[2020-02-01] MEDS ORDERED: mag hydrox/Alum hydrox/simeth 30ml oral suspension PO PRN (10:30)
[2020-02-01] MEDS ORDERED: acetaminophen 325mg tablet PO PRN ×2 (10:30)
[2020-02-01] MEDS ORDERED: potassium CL 10mEq/100ml bag 100 ML IV PRN ×2 (10:30)
[2020-02-01] MEDS ORDERED: magnesium Cl slow-release 64mg tablet PO PRN (10:30)
[2020-02-01] MEDS ORDERED: magnesium 4gm in 100ml NS 100 ML IV PRN (10:30)
[2020-02-01] MEDS ORDERED: potassium Cl 20 mEq SR tablet PO PRN ×2 (10:30)
[2020-02-01] MEDS ORDERED: HYDROcodone/acetaminophen 5mg/325mg tablet PO PRN (10:30)
[2020-02-01] MEDS ORDERED: ondansetron/PF 4mg/2ml inj IV PRN (10:30)
[2020-02-01] MEDS ORDERED: morphine 2 MG/ML inj. syringe IV PRN (10:30)
[2020-02-01] MEDS ORDERED: magnesium 2GM in 50ml NS 50 ML IV PRN (10:30)
[2020-02-01] MEDS ORDERED: pantoprazole 40MG/NS 100ML BAG 100 ML IV SCH (11:00)
[2020-02-01] MEDS ORDERED: MESSAGE TO PHARMACY PO ONE (11:10)
[2020-02-01] MEDS ORDERED: glucagon, human recombinant 1mg kit SUBCUT PRN (11:10)
[2020-02-01] MEDS ORDERED: dextrose ORAL solution 15 GM/59 ML bottle PO PRN ×2 (11:10)
[2020-02-01] MEDS ORDERED: insulin Lispro (HumaLOG) vial - multi-dose SQ SCH (11:10)
[2020-02-01] MEDS ORDERED: dextrose 50%-water 50ml dispensing syringe IV PRN ×2 (11:10)
[2020-02-01] MEDS ORDERED: LEVO175T7 PO (11:20)
[2020-02-01] MEDS ORDERED: ESOM40CA49 PO (11:20)
[2020-02-01] MEDS ORDERED: ALPR-623 PO (11:20)
[2020-02-01] MEDS ORDERED: TORS20TA3 PO (11:20)
[2020-02-01] MEDS ORDERED: HYDR-3972 PO (11:20)
--- NOTE | 2020-02-01 11:28 | NUR ---
Tried to call report to Surgical Floor. Notified that the nurse taking the pt has to give report off on a pt to get the pt. Asked to give report to the charge nurse, unable to do that.
--- NOTE | 2020-02-01 11:30 | NUR ---
Report received from ED RN, Deyanira.
[2020-02-01 11:39] LABS: HEMOGLOBIN A1C 5.2 % (4.5-6.2)
[2020-02-01] MEDS ORDERED: TORS10TA17 PO (12:10)
[2020-02-01] MEDS ORDERED: POTA8TAB3 PO (12:10)
[2020-02-01] MEDS ORDERED: METO-395 PO (12:14)
[2020-02-01] MEDS ORDERED: ATOR-2 PO (12:14)
[2020-02-01 12:15] VITALS: BP 117/66
[2020-02-01] MEDS: pantoprazole 40MG/NS 100ML BAG 100 ML IV SCH ×4 (12:46→23:01)
[2020-02-01] MEDS: normal saline 1000ml 1,000 ML IV SCH (12:46)
--- NOTE | 2020-02-01 18:10 | NUR ---
Problems reprioritized. Patient report given, questions answered & plan of care reviewed with ILEANA Langley.
--- NOTE | 2020-02-01 18:30 | NUR ---
Patient in room NOHEMI 346. I have received report from Yvette TEJEDA and had the opportunity to ask questions and assume patient care.
[2020-02-01 19:00] VITALS: BP 104/51
[2020-02-01 20:00] VITALS: BP 112/52
[2020-02-01] MEDS: K and/or MAG REPLACEMENT MC SCH (20:00)
[2020-02-01 20:18] VITALS: BP 107/67
[2020-02-01] MEDS: docusate sod 100mg capsule PO SCH (20:22)
[2020-02-01] MEDS ORDERED: temazepam 15mg capsule PO PRN (21:00)
[2020-02-01] MEDS: insulin glargine (Lantus) pen - multi-dose SQ SCH (21:00)
[2020-02-01 21:15] VITALS: BP 104/49
[2020-02-01 21:59] VITALS: BP 113/50
--- NOTE | 2020-02-01 22:00 | NUR ---
Patient had an elevated BS probably D/T apple juice patient had requested and given. Patient is on CLD only and then NPO at midnight.
[2020-02-02] VITALS (13 sets, daily range): BP systolic 112–138; BP diastolic 57–76
--- NOTE | 2020-02-02 01:12 | NUR ---
Lab just called to say the CMP clotted off and the Mag hemolysed. Will attempt to redraw. Pt. is a difficult stick and last time it took 3 different RN's.
[2020-02-02 02:19] LABS: MEAN CORPUSCULAR HGB CONC 32.3 g/dL (33.0-36.5); RED CELL DISTRIBUTION WIDTH 20.6 % (11.5-14.5); WHITE BLOOD COUNT 3.4 X10'3 (4.5-11.0)
[2020-02-02 02:20] LABS: BASOPHILS % (AUTO) 0.6 % (0-1); EOSINOPHILS # (AUTO) 0.2 X10'3 (0-0.9); EOSINOPHILS % (AUTO) 4.8 % (0-6); LYMPHOCYTES # (AUTO) 0.7 X10'3 (1.1-4.8); LYMPHOCYTES % (AUTO) 19.3 % (21-51); MEAN CORPUSCULAR HEMOGLOBIN 33.4 PG (27.0-31.0); MEAN CORPUSCULAR VOLUME 103.3 FL (78-98); MEAN PLATELET VOLUME 8.8 FL (7.4-10.4); MONOCYTES # (AUTO) 0.4 X10'3 (0-0.9); NEUTROPHILS # (AUTO) 2.1 X10'3 (1.8-7.7); NEUTROPHILS % (AUTO) 62.3 % (42-75); PLATELET COUNT 144 X10'3 (140-440); RED BLOOD COUNT 1.56 X10'6 (4.70-6.10)
[2020-02-02 02:26] LABS: HEMOGLOBIN 5.2 g/dl (14.0-17.9)
[2020-02-02 02:27] LABS: ALANINE AMINOTRANSFERASE 14 U/L (12-78); ALBUMIN 2.7 G/DL (3.4-5.0); ALBUMIN/GLOBULIN RATIO 1.1 (1.1-1.5); ALKALINE PHOSPHATASE 62 IU/L (46-116); ANION GAP 5 (8-16); ASPARTATE AMINO TRANSFERASE 21 U/L (10-37); BILIRUBIN,TOTAL 0.5 MG/DL (0.1-1.0); BLOOD UREA NITROGEN 17 MG/DL (7-18); CHLORIDE 109 MMOL/L (99-107); CREATININE 1.21 MG/DL (0.60-1.10); GLUCOSE 127 MG/DL (70-104); HEMATOCRIT 16.2 % (42.0-52.0); POTASSIUM 4.1 MMOL/L (3.5-5.1); SODIUM 140 MMOL/L (135-145); TOTAL CARBON DIOXIDE 25.8 MMOL/L (24-32); TOTAL PROTEIN 5.1 G/DL (6.4-8.2); eGFR 57 ML/MIN
[2020-02-02] MEDS ORDERED: ALPRAZolam 0.25mg tablet PO PRN (03:15)
[2020-02-02 03:26] LABS: TOTAL CELLS COUNTED 100
[2020-02-02 03:28] LABS: ANISOCYTOSIS 3+; PLATELET ESTIMATE NORMAL
[2020-02-02 03:29] LABS: POLYCHROMASIA 3+
[2020-02-02] MEDS: pantoprazole 40MG/NS 100ML BAG 100 ML IV SCH ×3 (03:44→15:41)
--- NOTE | 2020-02-02 06:30 | NUR ---
Problems reprioritized. Patient report given, questions answered & plan of care reviewed with Cary TEJEDA.
[2020-02-02 07:41] LABS: HEMATOCRIT 24.8 % (42.0-52.0); MEAN CORPUSCULAR HEMOGLOBIN 31.6 PG (27.0-31.0); MEAN CORPUSCULAR HGB CONC 32.4 g/dL (33.0-36.5); MEAN CORPUSCULAR VOLUME 97.7 FL (78-98); MEAN PLATELET VOLUME 8.7 FL (7.4-10.4); PLATELET COUNT 189 X10'3 (140-440); RED BLOOD COUNT 2.54 X10'6 (4.70-6.10)
[2020-02-02] MEDS: docusate sod 100mg capsule PO SCH ×2 (08:00→19:38)
[2020-02-02] MEDS: K and/or MAG REPLACEMENT MC SCH ×3 (08:00→19:53)
--- NOTE | 2020-02-02 09:51 | NUR ---
PAGER ID: [phone] MESSAGE: Kd Meyers [phone] STAT order for blood order but 0730 hemogram h and H 8 and 24... Do you still want me to give these 2 units? Cary [phone]
--- NOTE | 2020-02-02 10:02 | NUR ---
MD Winston called back- canceled units of blood. oked taking pt. off tele... Gave orders to replace potassium.
[2020-02-02] MEDS ORDERED: potassium CL 10mEq/100ml bag 100 ML IV PRN (10:05)
[2020-02-02] MEDS ORDERED: potassium Cl 20 mEq SR tablet PO PRN ×2 (10:05)
--- NOTE | 2020-02-02 11:09 | NUR ---
Pt. off floor and taken to GI lab for EGD.
[2020-02-02] MEDS ORDERED: fentaNYL/PF 50MCG/1 ML 2ML syringe ONE (12:01)
[2020-02-02] MEDS ORDERED: LIDOcaine Viscous 15ml cup ONE (12:01)
[2020-02-02] MEDS ORDERED: MIDAZolam 5mg/5ml vial ONE (12:01)
--- NOTE | 2020-02-02 14:54 | NUR ---
requesting port to be accessed for blood draws. Charge made aware- stated it would be difficult. Passed that information on to MD Winston who discussed the issue with Geeta bonilla.
--- NOTE | 2020-02-02 15:22 | NUR ---
PICC to access cath port. States not a good idea to access port just for labs. aware.
--- NOTE | 2020-02-02 15:24 | NUR ---
Nutrition consult "low albumin, ensure drinks, extra protein?" Pt is currently NPO admit DX anemia secondary to GIB w/ hx multiple myeloma. Given NPO not appropriate for ONS at this time. ALB likely to be effected by DX and pt hx as well. Will continue to monitor. Addendum: 02/02/20 at [address] Amended: Links added.
[2020-02-02 15:43] LABS: % IRON SATURATION 11 % (11-46); IRON 31 UG/DL (53-167); TOTAL IRON BINDING CAPACITY 293 UG/DL (259-388)
[2020-02-02 15:47] LABS: HEMATOCRIT 28.2 % (42.0-52.0); HEMOGLOBIN 9.1 g/dl (14.0-17.9); MEAN CORPUSCULAR HEMOGLOBIN 31.5 PG (27.0-31.0); MEAN CORPUSCULAR HGB CONC 32.1 g/dL (33.0-36.5); MEAN PLATELET VOLUME 9.1 FL (7.4-10.4); PLATELET COUNT 236 X10'3 (140-440); RED BLOOD COUNT 2.88 X10'6 (4.70-6.10); RED CELL DISTRIBUTION WIDTH 23.3 % (11.5-14.5); WHITE BLOOD COUNT 4.8 X10'3 (4.5-11.0)
[2020-02-02 16:10] LABS: FERRITIN 40 NG/ML (26-388)
--- NOTE | 2020-02-02 18:26 | NUR ---
Gave report to Korin TEJEDA.
--- NOTE | 2020-02-02 18:30 | NUR ---
Patient in room NOHEMI 346. I have received report from Cary TEJEDA and had the opportunity to ask questions and assume patient care.
[2020-02-02] MEDS ORDERED: nitroGLYCERIN 0.4mg SUBLingual tab SL PRN (18:40)
[2020-02-02] MEDS: iron sucrose complex injection 200 MG in normal saline 100ml IV soln 100 ML IV SCH (19:26)
[2020-02-02] MEDS: insulin glargine (Lantus) pen - multi-dose SQ SCH (21:00)
[2020-02-03] VITALS (8 sets, daily range): BP systolic 100–133; BP diastolic 50–58
[2020-02-03 06:25] LABS: BASOPHILS % (AUTO) 0.4 % (0-1); EOSINOPHILS # (AUTO) 0.2 X10'3 (0-0.9); EOSINOPHILS % (AUTO) 4.2 % (0-6); HEMATOCRIT 25.3 % (42.0-52.0); HEMOGLOBIN 8.2 g/dl (14.0-17.9); LYMPHOCYTES # (AUTO) 0.9 X10'3 (1.1-4.8); LYMPHOCYTES % (AUTO) 20.1 % (21-51); MEAN CORPUSCULAR HEMOGLOBIN 31.6 PG (27.0-31.0); MEAN CORPUSCULAR HGB CONC 32.6 g/dL (33.0-36.5); MEAN CORPUSCULAR VOLUME 97.1 FL (78-98); MEAN PLATELET VOLUME 8.7 FL (7.4-10.4); MONOCYTES # (AUTO) 0.6 X10'3 (0-0.9); MONOCYTES % (AUTO) 13.8 % (2-12); NEUTROPHILS # (AUTO) 2.7 X10'3 (1.8-7.7); NEUTROPHILS % (AUTO) 61.5 % (42-75); PLATELET COUNT 204 X10'3 (140-440); RED CELL DISTRIBUTION WIDTH 23.3 % (11.5-14.5); WHITE BLOOD COUNT 4.5 X10'3 (4.5-11.0)
--- NOTE | 2020-02-03 06:35 | NUR ---
Problems reprioritized. Patient report given, questions answered & plan of care reviewed with Janet TEJEDA.
--- NOTE | 2020-02-03 06:36 | NUR ---
Patient in room NOHEMI 346. I have received report from ILEANA Langley and had the opportunity to ask questions and assume patient care.
[2020-02-03 06:37] LABS: ALANINE AMINOTRANSFERASE 18 U/L (12-78); ALBUMIN/GLOBULIN RATIO 1.1 (1.1-1.5); ALKALINE PHOSPHATASE 73 IU/L (46-116); ANION GAP 6 (8-16); ASPARTATE AMINO TRANSFERASE 19 U/L (10-37); BILIRUBIN,TOTAL 0.5 MG/DL (0.1-1.0); BLOOD UREA NITROGEN 14 MG/DL (7-18); BUN/CREATININE RATIO 11.4 (5.4-32.0); CALCIUM 8.4 MG/DL (8.5-10.1); CHLORIDE 110 MMOL/L (99-107); CREATININE 1.23 MG/DL (0.60-1.10); GLUCOSE 134 MG/DL (70-104); MAGNESIUM 2.3 MG/DL (1.5-2.4); POTASSIUM 4.2 MMOL/L (3.5-5.1); SODIUM 142 MMOL/L (135-145); TOTAL CARBON DIOXIDE 26.3 MMOL/L (24-32); TOTAL PROTEIN 5.7 G/DL (6.4-8.2); eGFR 56 ML/MIN
[2020-02-03] MEDS: K and/or MAG REPLACEMENT MC SCH ×4 (06:56→20:00)
[2020-02-03] MEDS: LIPASE/PROTEASE/AMYLASE 4,200 unit CAPSULE.DR PO SCH ×3 (07:49→17:23)
[2020-02-03] MEDS: iron sucrose complex injection 200 MG in normal saline 100ml IV soln 100 ML IV SCH (07:49)
[2020-02-03] MEDS: TIMOLOL MALEATE 0.5% 10ml 1 APPLIC BOTTLE EACHEYE SCH (07:49)
[2020-02-03] MEDS: multivitamins, therapeutics tablet PO SCH (07:50)
[2020-02-03] MEDS: tamsulosin 0.4mg capsule PO SCH (07:50)
[2020-02-03] MEDS: levoTHYROXINE 175mcg tablet PO SCH (07:50)
[2020-02-03] MEDS: lisinopril 20mg tablet PO SCH (07:50)
[2020-02-03] MEDS: docusate sod 100mg capsule PO SCH ×2 (07:50→20:50)
[2020-02-03] MEDS: atorvastatin 20mg tablet PO SCH (07:50)
[2020-02-03] MEDS: pantoprazole 40mg Tablet.DR PO SCH (07:51)
[2020-02-03] MEDS: duloxetine 30mg CAPSULE.DR PO SCH (07:51)
[2020-02-03] MEDS: metoprolol succinate 25mg (24-HOUR) SR. Tablet PO SCH (07:51)
[2020-02-03 07:52] LABS: ANISOCYTOSIS 3+; PLATELET ESTIMATE NORMAL
[2020-02-03 07:53] LABS: LARGE PLATELETS FEW; POLYCHROMASIA 1+
[2020-02-03] MEDS: normal saline 1000ml 1,000 ML IV SCH (10:28)
[2020-02-03 11:54] LABS: HEMATOCRIT 24.2 % (42.0-52.0); HEMOGLOBIN 7.7 g/dl (14.0-17.9); MEAN CORPUSCULAR HEMOGLOBIN 31.3 PG (27.0-31.0); MEAN CORPUSCULAR VOLUME 97.7 FL (78-98); MEAN PLATELET VOLUME 8.6 FL (7.4-10.4); PLATELET COUNT 200 X10'3 (140-440); RED BLOOD COUNT 2.47 X10'6 (4.70-6.10); RED CELL DISTRIBUTION WIDTH 22.9 % (11.5-14.5)
--- NOTE | 2020-02-03 18:07 | NUR ---
Problems reprioritized. Patient report given, questions answered & plan of care reviewed with ILEANA Langley.
--- NOTE | 2020-02-03 18:23 | NUR ---
Patient in room NOHEMI 346. I have received report from Janet TEJEDA and had the opportunity to ask questions and assume patient care.
[2020-02-03] MEDS: insulin glargine (Lantus) pen - multi-dose SQ SCH (21:00)
[2020-02-04] VITALS: BP 116/54
--- NOTE | 2020-02-04 06:39 | NUR ---
Patient in room NOHEMI 346. I have received report from ILEANA Langley and had the opportunity to ask questions and assume patient care.
--- NOTE | 2020-02-04 06:49 | NUR ---
Problems reprioritized. Patient report given, questions answered & plan of care reviewed with Ellyn TEJEDA.
[2020-02-04 06:53] LABS: BASOPHILS % (AUTO) 0.5 % (0-1); EOSINOPHILS # (AUTO) 0.2 X10'3 (0-0.9); EOSINOPHILS % (AUTO) 4.9 % (0-6); HEMOGLOBIN 8.9 g/dl (14.0-17.9); LYMPHOCYTES # (AUTO) 0.8 X10'3 (1.1-4.8); LYMPHOCYTES % (AUTO) 19.4 % (21-51); MEAN CORPUSCULAR HEMOGLOBIN 32.2 PG (27.0-31.0); MEAN CORPUSCULAR VOLUME 97.6 FL (78-98); MEAN PLATELET VOLUME 8.6 FL (7.4-10.4); MONOCYTES # (AUTO) 0.6 X10'3 (0-0.9); MONOCYTES % (AUTO) 13.7 % (2-12); NEUTROPHILS # (AUTO) 2.6 X10'3 (1.8-7.7); NEUTROPHILS % (AUTO) 61.5 % (42-75); PLATELET COUNT 189 X10'3 (140-440); RED BLOOD COUNT 2.76 X10'6 (4.70-6.10); RED CELL DISTRIBUTION WIDTH 21.2 % (11.5-14.5); WHITE BLOOD COUNT 4.3 X10'3 (4.5-11.0)
[2020-02-04] MEDS: LIPASE/PROTEASE/AMYLASE 4,200 unit CAPSULE.DR PO SCH (07:00)
[2020-02-04 07:11] LABS: ALANINE AMINOTRANSFERASE 12 U/L (12-78); ALBUMIN 2.8 G/DL (3.4-5.0); ALBUMIN/GLOBULIN RATIO 1.1 (1.1-1.5); ALKALINE PHOSPHATASE 77 IU/L (46-116); ANION GAP 5 (8-16); ASPARTATE AMINO TRANSFERASE 20 U/L (10-37); BILIRUBIN,TOTAL 0.6 MG/DL (0.1-1.0); BLOOD UREA NITROGEN 15 MG/DL (7-18); BUN/CREATININE RATIO 12.9 (5.4-32.0); CALCIUM 8.4 MG/DL (8.5-10.1); CHLORIDE 109 MMOL/L (99-107); CREATININE 1.16 MG/DL (0.60-1.10); GLUCOSE 153 MG/DL (70-104); MAGNESIUM 2.2 MG/DL (1.5-2.4); POTASSIUM 4.4 MMOL/L (3.5-5.1); SODIUM 140 MMOL/L (135-145); TOTAL PROTEIN 5.4 G/DL (6.4-8.2); eGFR 60 ML/MIN
[2020-02-04 07:30] VITALS: BP 100/64
[2020-02-04 07:35] LABS: ANISOCYTOSIS 3+; PLATELET ESTIMATE NORMAL
[2020-02-04 07:36] LABS: HYPOCHROMASIA 1+; POLYCHROMASIA FEW
[2020-02-04 08:00] VITALS: BP_SYST 100
[2020-02-04] MEDS: K and/or MAG REPLACEMENT MC SCH ×2 (08:00)
[2020-02-04] MEDS: lisinopril 20mg tablet PO SCH (08:00)
[2020-02-04] MEDS: iron sucrose complex injection 200 MG in normal saline 100ml IV soln 100 ML IV SCH (08:17)
[2020-02-04] MEDS: normal saline 1000ml 1,000 ML IV SCH (08:17)
[2020-02-04] MEDS: docusate sod 100mg capsule PO SCH (08:21)
[2020-02-04] MEDS: multivitamins, therapeutics tablet PO SCH (08:21)
[2020-02-04] MEDS: metoprolol succinate 25mg (24-HOUR) SR. Tablet PO SCH (08:21)
[2020-02-04] MEDS: levoTHYROXINE 175mcg tablet PO SCH (08:22)
[2020-02-04] MEDS: tamsulosin 0.4mg capsule PO SCH (08:22)
[2020-02-04] MEDS: pantoprazole 40mg Tablet.DR PO SCH (08:22)
[2020-02-04] MEDS: duloxetine 30mg CAPSULE.DR PO SCH (08:22)
[2020-02-04] MEDS: atorvastatin 20mg tablet PO SCH (08:22)
[2020-02-04] MEDS: TIMOLOL MALEATE 0.5% 10ml 1 APPLIC BOTTLE EACHEYE SCH (08:23)
--- NOTE | 2020-02-04 11:03 | NUR ---
Patient discharged home via and taken from unit via wheelchair with x1 staff. Patient extended IV removed with cannula intact. Patient took all belongings with him and was going to meet his outside, staff member went with him just to ensure he left safely. Patient alert, oriented and in no apparent distress at time of discharge, patient stated feeling, "much better". Discharge instructions discussed with patient and he was given time for questions and answers. Patient stated understanding of these instructions. Patient stated that he would follow up with his PCP in 1-2 weeks.
[2020-02-06 10:54] LABS: OCCULT BLOOD STOOL POSITIVE (Neg)
== END 2020-02-04 11:04 | disposition home or self-care (01) | DRG 377 ==
LOC: ER 08:35 → ED HOLD 10:28 → EDBEDREQ 11:11 → SUR 3N 12:10
PROVIDERS: ADMIT Internal Medicine; ATTEND Family Medicine
PROC: 30233N1 Transfusion of Nonautologous Red Blood Cells into Peripheral Vein, Percutaneous Approach (ICD-10-PCS; principal; 2020-02-01)
PROC: 0DJ08ZZ Inspection of Upper Intestinal Tract, Via Natural or Artificial Opening Endoscopic (ICD-10-PCS; 2020-02-02)
DX: K92.2 Gastrointestinal hemorrhage, unspecified (principal); N17.0 Acute kidney failure with tubular necrosis; C90.00 Multiple myeloma not having achieved remission; K92.1 Melena; I10 Essential (primary) hypertension; E11.9 Type 2 diabetes mellitus without complications; D50.0 Iron deficiency anemia secondary to blood loss (chronic); E78.00 Pure hypercholesterolemia, unspecified; E78.5 Hyperlipidemia, unspecified; E86.0 Dehydration; K44.9 Diaphragmatic hernia without obstruction or gangrene; F32.9 Major depressive disorder, single episode, unspecified; J45.909 Unspecified asthma, uncomplicated; I25.10 Atherosclerotic heart disease of native coronary artery without angina pectoris; I25.2 Old myocardial infarction; Z79.84 Long term (current) use of oral hypoglycemic drugs; Z86.73 Personal history of transient ischemic attack (TIA), and cerebral infarction without residual deficits; Z88.8 Allergy status to other drugs, medicaments and biological substances; Z98.61 Coronary angioplasty status; Z80.0 Family history of malignant neoplasm of digestive organs; Z79.899 Other long term (current) drug therapy
CPT/HCPCS: 36415; 36430; 43235; 71045; 80053; 82272; 82728; 82948; 83036; 83540; 83550; 83735; 85025; 85027; 85610; 85730; 86885; 86900; 86901; 86920; 86945; 87081; 93005; 96374; 96375; 97110; 97116; 97161; 97530; 99152; 99285; A4620; C9113; G0378; J1756; J1815; J2250; J3010; J3490; J7030; J7040; P9016

== ENCOUNTER 2020-02-13 06:47 | Day surgery (SDC) | payer MEDICARE, BC ==
[2020-02-13] VITALS (11 sets, daily range): BP systolic 97–130; BP diastolic 44–61
[~2020-02-13] VITALS: Ht 172.7 cm; Wt 110.0 kg
[~2020-02-13 06:47] MED LIST changes: +ALPR-623 PO; +ATOR-2 PO; -ATOR40TA PO; -DOXY-224 PO; +HYDR-3972 PO; -LEVO137T2 PO; +LEVO175T7 PO; +METO-395 PO
[2020-02-13] MEDS ORDERED: diphenhydrAMINE 25mg capsule PO ONE (07:10)
[2020-02-13] MEDS ORDERED: dexamethasone sod phosphate 10mg/ml inj IV ONE (07:10)
[2020-02-13] MEDS ORDERED: acetaminophen 325mg tablet PO ONE (07:10)
[2020-02-22] MEDS ORDERED: DOXY-8 PO (14:01)
[2020-02-22] MEDS ORDERED: ALLO100T PO (14:01)
[2020-02-22] MEDS ORDERED: TORS20TA3 PO (14:01)
[2020-02-24] MEDS ORDERED: PANT40TA4 PO (11:02)
[2020-03-01] MEDS ORDERED: DOXY-224 PO (20:49)
[2020-03-01] MEDS ORDERED: PANT40SU2 PO (20:49)
[2020-03-01] MEDS ORDERED: POTA10TA19 PO (20:57)
== END 2020-02-13 12:00 | disposition home or self-care (01) ==
LOC: U 06:47 → MED 3N 06:47 → U 12:00
PROVIDERS: ATTEND Internal Medicine Hematology & Oncology
DX: D64.9 Anemia, unspecified (principal)
CPT/HCPCS: 36415; 36430; 82948; 86885; 86900; 86901; 86920; 86945; J1100; P9016; Q0163

== ENCOUNTER 2020-06-09 08:09 | Day surgery (SDC) | payer MEDICARE, BC ==
[~2020-06-09] VITALS: Ht 172.7 cm; Wt 104.5 kg
[~2020-06-09 08:09] MED LIST changes: +ALLO100T PO; +DOXY-224 PO; +PANT40SU2 PO; -PANT40TA4 PO; +POTA10TA19 PO; +TORS20TA3 PO
[2020-06-09] MEDS ORDERED: MIDAZolam 5mg/5ml vial ONE (08:16)
[2020-06-09] MEDS ORDERED: LIDOcaine Viscous 15ml cup ONE (08:16)
[2020-06-09] MEDS ORDERED: fentaNYL/PF 50MCG/1 ML 2ML syringe ONE (08:16)
[2020-06-09 08:20] VITALS: BP 135/49
[2020-06-09 09:56] VITALS: BP 133/74
[2020-06-09 10:04] VITALS: BP 114/67
[2020-06-09 10:14] VITALS: BP 120/71
[2020-06-09 10:24] VITALS: BP 139/70
== END 2020-06-09 10:49 | disposition home or self-care (01) ==
LOC: GI LAB 08:09
PROVIDERS: ATTEND Internal Medicine Gastroenterology
DX: D50.0 Iron deficiency anemia secondary to blood loss (chronic) (principal); K92.2 Gastrointestinal hemorrhage, unspecified; K29.50 Unspecified chronic gastritis without bleeding; K44.9 Diaphragmatic hernia without obstruction or gangrene; K22.2 Esophageal obstruction; K31.89 Other diseases of stomach and duodenum
CPT/HCPCS: 43239; 43255; G0500; J2250; J3010; J7040; 43227; 99152; 99153; A4620